=== PATIENT | male | born 1975 | race American Indian/Alaskan Native ===

== ENCOUNTER 2016-11-16 10:58 | Inpatient (IN) | payer OTHER ==
[2016-11-16] MEDS ORDERED: Sodium Chloride 0.9% 500 ML IV ONE (13:07)
[2016-11-16] MEDS ORDERED: Sodium Chloride 0.9% 1,000 ML ONE (13:31)
[2016-11-16 13:40] LABS: BASO # 0.1 K/uL (0.0-0.2); BASO % 0.4 % (0.0-2.0); EOS # 0.2 K/uL (0.0-0.7); MEAN CORPUSCULAR HEMOGLOBIN 28.5 pg (27.0-31.0); MEAN CORPUSCULAR HGB CONC 31.7 g/dL (33.0-37.0); MEAN PLATELET VOLUME 7.6 fL (7.2-11.7); MONO # 0.8 K/uL (0.0-0.8); MONO % 5.1 % (0.0-10.0); RED CELL DISTRIBUTION WIDTH 13.6 % (11.5-14.5); WHITE BLOOD COUNT 16.5 K/uL (4.8-10.8)
--- NOTE | 2016-11-16 13:45 | C.PDOC ---
History Of Present Illness 41 yr old male presents to the ER for evaluation of left testicular painful mass , gradually worsening for the past few months. Patient states the swelling has worsened in the past few days, associated with moderate discharge and chills. Patient denies fever, chills, chest pain, SOB, nausea, vomiting, abdominal pain , diarrhea, dysuria, hematuria, penile discharge, weakness or numbness. Time Seen by Provider: 11/16/16 12:00 Chief Complaint (Nursing): Groin Pain History Per: Patient History/Exam Limitations: no limitations Onset/Duration Of Symptoms: Persistent (Few months. ), Worse Since (Past few days.) Current Symptoms Are (Timing): Still Present Past Medical History Reviewed: Historical Data, Nursing Documentation, Vital Signs Vital Signs: Last Vital Signs Temp 98.4 F 11/18/16 08:29 Pulse 93 H 11/18/16 08:29 Resp 20 11/18/16 08:29 BP 123/82 11/18/16 08:29 Pulse Ox 97 11/18/16 08:29 Family History: States: No Known Family Hx - Social History Hx Alcohol Use: No Hx Substance Use: No - Immunization History Hx Tetanus Toxoid Vaccination: No Hx Influenza Vaccination: No Hx Pneumococcal Vaccination: No Review Of Systems Except As Marked, All Systems Reviewed And Found Negative. Constitutional: Negative for: Fever, Chills Cardiovascular: Negative for: Chest Pain Respiratory: Negative for: Shortness of Breath Gastrointestinal: Negative for: Nausea, Vomiting, Abdominal Pain, Diarrhea Genitourinary: Positive for: Other ((+) Left testicular painful mass). Negative for: Dysuria, Hematuria, Penile Discharge Neurological: Negative for: Weakness, Numbness Physical Exam - Physical Exam Appears: Well, Non-toxic, No Acute Distress Skin: Warm, Dry, No Rash Head: Atraumatic, Normacephalic Eye(s): bilateral: Normal Inspection, PERRL, EOMI Oral Mucosa: Moist Throat: Normal, No Erythema, No Exudate Neck: Normal, Normal ROM, Supple Chest: Symmetrical, No Tenderness Cardiovascular: Rhythm Regular, No Murmur Respiratory: Normal Breath Sounds, No Rales, No Rhonchi, No Stridor, No Wheezing Gastrointestinal/Abdominal: Normal Exam, Soft, No Tenderness, No Guarding, No Rebound Male Genital: Other ((+) Tender mass to the left testicular with open wound, copious amount of discharge. ) Extremity: Normal ROM Neurological/Psych: Oriented x3, Normal Speech, Normal Motor ED Course And Treatment - Laboratory Results Result Diagrams: 11/18/16 06:29 11/18/16 06:29 Lab Interpretation: Abnormal O2 Sat by Pulse Oximetry: 99 Pulse Ox Interpretation: Normal - CT Scan/US US - Testicular Other Rad Studies (CT/US): Read By Radiologist, Radiology Report Reviewed CT/US Interpretation: HISTORY: Left testicular abscess. TECHNIQUE: Realtime sonography through the scrotum with color and doppler flow. COMPARISON: None Available. FINDINGS: RIGHT TESTICLE: Measures 4.7 x 2.2 x 2.8 cm. Homogeneous echotexture.Blood flow is demonstrated. 0.2 x 0.2 x 0.2 cm probable right scrotal cyst. RIGHT EPIDIDYMIS: Measures approximately 0.8 x 0.9 x 1.2 cm. LEFT TESTICLE: Measures 4.5 x 2.1 x 2.4 cm. Homogeneous echotexture. Blood flow is demonstrated. LEFT EPIDIDYMIS: Measures approximately 1.0 x 0.7 x 0.9 cm. HYDROCELE: Trace left hydrocele. VARICOCELE : None. OTHER FINDINGS: Ill-defined extra testicular heterogeneous and hyperechoic vascular solid appearing left scrotal mass. Scrotal wall thickening. IMPRESSION: Ill-defined extra testicular heterogeneous, hyperechoic, and hypervascular left scrotal mass appears solid. Scrotal wall thickening. Finding corresponds with palpable abnormality. Malignant neoplasm must be excluded. Abscess is considered less likely. Recommend urologic consultation. Findings discussed with Elisa Isidro on 11/16/16 at 2:43 p.m. Progress Note: At 15:10, imaging results review and discussed with radiologist. [id number] paged for consult. At 16:30, was paged again. Case discussed with ED attending, results, imaging review and admission recommend. Case discussed with Hospitalist and admission arranged. Abx, additional blood work order per Hospitalist request. Medical Decision Making Medical Decision Making: PLAN: * US - Testicular * GC Chlamydia * Urinalysis * Sodium Chloride IV Disposition - Disposition Disposition: HOSPITALIZED Disposition Time: 16:02 Condition: STABLE - Clinical Impression Clinical Impression: Testicular abscess, Testicular mass, Cellulitis - PA / GEOCHEMICAL LABORATORY TECHNICIAN / Resident Statement MD/DO has reviewed & agrees with the documentation as recorded. - Scribe Statement The provider has reviewed the documentation as recorded by the Scribe Dari Mckeon All medical record entries made by the Scribe were at my direction and personally dictated by me. I have reviewed the chart and agree that the record accurately reflects my personal performance of the history, physical exam, medical decision making, and the department course for this patient. I have also personally directed, reviewed, and agree with the discharge instructions and disposition.
[2016-11-16 13:47] LABS: CHLORIDE 100 mmol/L (98-107)
[2016-11-16 13:48] LABS: POTASSIUM 4.5 mmol/L (3.6-5.2); SODIUM 139 mmol/L (132-148)
[2016-11-16 13:50] LABS: ALB/GLOB RATIO 0.8 (1.0-2.1); ALKALINE PHOSPHATASE 81 U/L (38-126); AST/SGOT 24 U/L (17-59); BILIRUBIN,TOTAL 0.6 mg/dL (0.2-1.3); BLOOD UREA NITROGEN 9 mg/dL (9-20); CARBON DIOXIDE 28 mmol/L (22-30); GFR AFRICAN-AMERICAN > 60; GLUCOSE,RANDOM 96 mg/dL (75-110); TOTAL PROTEIN 8.6 g/dL (6.3-8.3)
[2016-11-16 13:51] LABS: ALT/SGPT 33 U/L (21-72); CALCIUM 8.8 mg/dl (8.6-10.4)
[2016-11-16 14:01] LABS: RBC URINE 3 /hpf (0-3); URINE BILIRUBIN NEGATIVE (NEGATIVE); URINE BLOOD NEGATIVE (NEGATIVE); URINE COLOR Yellow (YELLOW); URINE GLUCOSE (UA) NORMAL (Normal); URINE KETONE TRACE mg/dL (NEGATIVE); URINE LEUKOCYTE ESTERASE NEG Leu/uL (Negative); URINE PROTEIN NEGATIVE (NEGATIVE); URINE UROBILINOGEN NORMAL mg/dL (0.2-1.0); WBC URINE 1 /hpf (0-5)
--- NOTE | 2016-11-16 14:59 | US ---
HISTORY: Left testicular abscess TECHNIQUE: Realtime sonography through the scrotum with color and doppler flow. COMPARISON: None Available. FINDINGS: RIGHT TESTICLE: Measures 4.7 x 2.2 x 2.8 cm. Homogeneous echotexture.Blood flow is demonstrated. 0.2 x 0.2 x 0.2 cm probable right scrotal cyst. RIGHT EPIDIDYMIS: Measures approximately 0.8 x 0.9 x 1.2 cm. LEFT TESTICLE: Measures 4.5 x 2.1 x 2.4 cm. Homogeneous echotexture. Blood flow is demonstrated. LEFT EPIDIDYMIS: Measures approximately 1.0 x 0.7 x 0.9 cm. HYDROCELE: Trace left hydrocele. VARICOCELE: None. OTHER FINDINGS: Ill-defined extra testicular heterogeneous and hyperechoic vascular solid appearing left scrotal mass. Scrotal wall thickening. IMPRESSION: Ill-defined extra testicular heterogeneous, hyperechoic, and hypervascular left scrotal mass appears solid. Scrotal wall thickening. Finding corresponds with palpable abnormality. Malignant neoplasm must be excluded. Abscess is considered less likely. Recommend urologic consultation. Findings discussed with Elisa Isidro on 11/16/16 at 2:43 p.m.
[2016-11-16] MEDS ORDERED: Vancomycin 1 gm/NS 200 ml 200 ML IVPB STA (15:14)
[2016-11-16] MEDS ORDERED: Piperacillin/Tazobact 3.375 gm 100 ML IV STA (16:07)
[2016-11-16] MEDS ORDERED: Sodium Chloride 0.9% 1,000 ML IV SCH (17:00)
[2016-11-16] MEDS ORDERED: Piperacillin/Tazobact 3.375 GM in Sodium Chloride 100 ML IVPB SCH (17:00)
--- NOTE | 2016-11-16 17:01 | CP.PCM.HP ---
<Sam Mari - Last Filed: 11/16/16 16:54> History of Present Illness - History of Present Illness History of Present Illness: This is a 41 yo M with no significant PMH that presented to the ED with a chief complaint of left testicular pain. Pt states that his symptoms began 6 months ago and started out what looked like a "pimple" on his left testicle. He states that he is able to express discharge from it at times. He states that it progressed and became more painful. He states that he has a feeling of fullness and it has gotten worse over time as well. The pain is currently a 6/10 and is constant. There is no relieving factors. Pt states that he had a 103.1 fever 3 days ago that resolved with over the counter medications. Pt states that he is sexually active with only his . Denies any more fevers, denies chills, chest pain, sob, nausea, vomiting, penile discharge, dysuria, urinary urgency or frequency. PMD: none PMH: denies PSH: denies Home meds: none Allergies: NKDA FH: denies SH: denies tobacco, etoh or drug use Present on Admission - Present on Admission Any Indicators Present on Admission: No Review of Systems - Constitutional Constitutional: absent: Chills, Fever - EENT Eyes: absent: Blurred Vision, Pain - Cardiovascular Cardiovascular: absent: Chest Pain, Palpitations - Respiratory Respiratory: absent: Cough, Dyspnea - Gastrointestinal Gastrointestinal: absent: Nausea, Vomiting - Genitourinary Genitourinary: absent: Dysuria, Hematuria, Urinary Frequency, Urinary Hesitance , Urinary Urgency - Musculoskeletal Musculoskeletal: absent: Muscle Weakness, Stiffness - Integumentary Integumentary: absent: Pruritus, Rash - Neurological Neurological: absent: Numbness, Tingling Past Patient History - Past Social History Smoking Status: Never Smoked - PSYCHIATRIC Hx Substance Use: No - SURGICAL HISTORY Hx Surgeries: Yes Hx Orthopedic Surgery: Yes - ANESTHESIA Hx Anesthesia: Yes Hx Anesthesia Reactions: No Meds Allergies/Adverse Reactions: Allergies Allergy/AdvReac Type Severity Reaction Status Date / Time CHERRIES Allergy Severe ANAPHYLAXIS Uncoded 11/16/16 11:48 Physical Exam - Constitutional Appears: Well, Non-toxic, No Acute Distress - Head Exam Head Exam: ATRAUMATIC, NORMOCEPHALIC - Eye Exam Eye Exam: Normal appearance Pupil Exam: PERRL - ENT Exam ENT Exam: Mucous Membranes Moist - Respiratory Exam Respiratory Exam: Clear to Auscultation Bilateral, NORMAL BREATHING PATTERN - Cardiovascular Exam Cardiovascular Exam: +S1, +S2 - GI/Abdominal Exam GI & Abdominal Exam: Normal Bowel Sounds, Soft - Exam Additional comments: Left testicle: Palpable mass/induration covering left testicle with open sores and serosanginous discharge. Pain to palpation. Right testicle: no pain to palpation, no varicocele. - Extremities Exam Extremities exam: Positive for: normal capillary refill, normal inspection - Neurological Exam Neurological exam: Alert, Oriented x3 - Skin Skin Exam: Dry, Warm Results - Vital Signs Recent Vital Signs: Last Vital Signs Temp 98.5 F 11/16/16 11:49 Pulse 90 11/16/16 11:49 Resp 20 11/16/16 11:49 BP 127/87 11/16/16 11:49 Pulse Ox 99 11/16/16 16:15 - Labs Result Diagrams: 11/16/16 13:30 11/16/16 13:30 Assessment & Plan - Assessment and Plan (Free Text) Assessment: Left testicular mass vs abscess - Pain to palpation with discharge from small, open sore - Testicular US 11/16 - Ill-defined extra testicular heterogeneous, hyperechoic, and hypervascular left scrotal mass appears solid. Scrotal wall thickening. Finding corresponds with palpable abnormality. Malignant neoplasm must be excluded. Abscess is considered less likely. Recommend urologic consultation. - Blood and urine culture - f/u - Wound culture - f/u - HIV, RPR and G/C - f/u - Zosyn and Vancomycin started (11/16) - Afebrile, but with leukocytosis - Tylenol PRN - Urology consult - Guillermo - help appreciated - F/U recs Leukocytosis - Likely due to above PPX - Lovenox - Pepcid <Osman Atkinson - Last Filed: 12/19/16 18:08> Results - Vital Signs Recent Vital Signs: Last Vital Signs Temp 98.4 F 11/24/16 08:15 Pulse 86 11/24/16 08:52 Resp 20 11/24/16 08:15 BP 119/80 11/24/16 08:15 Pulse Ox 99 11/24/16 08:15 - Labs Result Diagrams: 11/24/16 07:33 11/24/16 07:33 Attending/Attestation - Attestation I have personally seen and examined this patient.: Yes I have fully participated in the care of the patient.: Yes I have reviewed all pertinent clinical information: Yes Notes (Text): Patient seen and examined with the resident. Agree with the resident's evaluation, assessment and plan. Left testicular mass vs abscess Leukocytosis
[2016-11-16] MEDS ORDERED: Piperacillin/Tazobact 3.375 gm 100 ML IVPB ONE (17:24)
[2016-11-16] MEDS ORDERED: Vancomycin 1 gm/NS 200 ml 200 ML IVPB SCH (17:30)
[2016-11-16] MEDS: Sodium Chloride 0.9% 1,000 ML IV SCH (20:20)
[2016-11-17] MEDS: Piperacillin/Tazobact 3.375 GM in Sodium Chloride 100 ML IVPB SCH ×4 (00:27→17:33)
[2016-11-17] MEDS: Vancomycin 1 gm/NS 200 ml 200 ML IVPB SCH ×2 (03:53→15:57)
[2016-11-17] MEDS: Sodium Chloride 0.9% 1,000 ML IV SCH (03:55)
[2016-11-17 07:46] LABS: BASO # 0.1 K/uL (0.0-0.2); BASO % 0.7 % (0.0-2.0); EOS # 0.3 K/uL (0.0-0.7); EOS % 1.7 % (0.0-4.0); HEMATOCRIT 36.6 % (35.0-51.0); LYMPH # 1.9 K/uL (1.0-4.3); LYMPH % 12.5 % (20.0-40.0); MEAN CELL VOLUME 89.7 fL (80.0-94.0); MEAN CORPUSCULAR HGB CONC 32.3 g/dL (33.0-37.0); MEAN PLATELET VOLUME 7.6 fL (7.2-11.7); MONO # 0.9 K/uL (0.0-0.8); MONO % 6.1 % (0.0-10.0); RED CELL DISTRIBUTION WIDTH 13.7 % (11.5-14.5); WHITE BLOOD COUNT 15.3 K/uL (4.8-10.8)
[2016-11-17 07:57] LABS: CHLORIDE 101 mmol/L (98-107); SODIUM 141 mmol/L (132-148)
[2016-11-17 07:58] LABS: POTASSIUM 4.5 mmol/L (3.6-5.2)
[2016-11-17 08:00] LABS: ALB/GLOB RATIO 0.9 (1.0-2.1); ALKALINE PHOSPHATASE 78 U/L (38-126); ALT/SGPT 26 U/L (21-72); AST/SGOT 23 U/L (17-59); BILIRUBIN,TOTAL 0.6 mg/dL (0.2-1.3); BLOOD UREA NITROGEN 10 mg/dL (9-20); CARBON DIOXIDE 25 mmol/L (22-30); GFR AFRICAN-AMERICAN > 60; GLUCOSE,RANDOM 105 mg/dL (75-110); TOTAL PROTEIN 7.3 g/dL (6.3-8.3)
[2016-11-17 08:01] LABS: CALCIUM 8.2 mg/dl (8.6-10.4)
[2016-11-17] MEDS: Enoxaparin 40 mg Syringe SC SCH (09:24)
[2016-11-17] MEDS ORDERED: Iodixanol 320 MG/ML 100 ML BOTTLE IV ONE (13:10)
--- NOTE | 2016-11-17 13:49 | CT ---
PROCEDURE: CT Abdomen and Pelvis with contrast HISTORY: testicular mass r/o evidence of mets COMPARISON: None available. TECHNIQUE: Contrast dose: 100 cc visi opaque 320 Radiation dose: Total exam DLP = 332.35 mGy-cm. This CT exam was performed using one or more of the following dose reduction techniques: Automated exposure control, adjustment of the mA and/or kV according to patient size, and/or use of iterative reconstruction technique. FINDINGS: Examination limited by paucity of intra-abdominal and intrapelvic fat. LOWER THORAX: No visible consolidation, pleural effusion, or pneumothorax. LIVER: Hypoattenuation of the liver compatible with hepatic steatosis. GALLBLADDER AND BILE DUCTS: Unremarkable. PANCREAS: Unremarkable. SPLEEN: Unremarkable. ADRENALS: Unremarkable. KIDNEYS AND URETERS: The kidneys enhance symmetrically. No evidence of hydronephrosis or obstructing calculus. 13 mm hypodense lesion within the left lower pole kidney measuring approximately 13 HU, possibly cyst. VASCULATURE: No aortic aneurysm. BOWEL: The stomach is incompletely distended and contains debris. Lack of oral contrast limits evaluation for bowel pathology. Bowel loops appear within normal limits of caliber without evidence of obstruction. Moderate constipation. APPENDIX: The presumed appendix appears within normal limits of caliber. No secondary signs of acute appendicitis. PERITONEUM: No significant free fluid. No definite free air. LYMPH NODES: Bilateral prominent inguinal adenopathy measuring up to 11 mm in short axis on the left. Lymph node along the left iliac artery measures approximately 7 mm in short axis (series 3, image 123). BLADDER: Mildly thick-walled urinary bladder likely exaggerated by under distension. REPRODUCTIVE: The prostate gland measures approximately 2.9 x 3.7 cm. BONES: Left L5 spondylolysis. OTHER FINDINGS: 1.7 cm fat containing umbilical hernia. IMPRESSION: 13 mm hypodense lesion within the left lower pole kidney, possibly cyst. Further evaluation with renal ultrasound suggested for confirmation if indicated. Hepatic steatosis. Mildly thick-walled urinary bladder likely exaggerated by under distension. Left L5 spondylolysis. 1.7 cm fat containing umbilical hernia. Nonspecific lymphadenopathy: Bilateral prominent inguinal adenopathy measuring up to 11 mm in short axis on the left. Lymph node along the left iliac artery measures approximately 7 mm in short axis.
--- NOTE | 2016-11-17 15:03 | CON ---
DATE: 11/17/2016 REASON FOR CONSULTATION: Left scrotal cellulitis and mass on ultrasound. BRIEF HISTORY: The patient is a 41-year-old sexually active male with a history of left scrotal nodu les which began 6 months ago, which became progressively larger and eventually leading into inflammat ion of the left scrotal wall and drainage which began 2 months ago. The patient was seen at [facility] on 11/16/2016 where the patient had a scrotal ultrasound done and this was revie wed with radiology, Dr. Luz Stevens, today, 11/17/2016, which showed the testicle relatively intact and inflammation throughout the left scrotal wall without any apparent abscess formation, possibly se condary to the spontaneous drainage that the patient has had for over the last 2 months from the uppe r left scrotal wound, which was open. This area was cultured in the ER. The ultrasound report was r ead as a neoplasm, should be ruled out. The patient's white count on admission was over 17,000. His white count late yesterday was 16.5 and is currently 15.3 today, 11/17/2016, on Zosyn and vancomycin I V antibiotics. The patient himself denies any other prior medical history. PAST SURGICAL HISTORY: His only past surgery history was for that of a fractured right humerus. SOCIAL HISTORY: He smoked for 16 years, about a pack every 3 days, and he stopped smoking last week. He is only a social drinker. ALLERGIES: He has no known allergies to medications. PHYSICAL EXAMINATION: GENERAL: Today, he is a well-developed, well-nourished male. He is alert, oriented. HEENT: Grossly within normal limits. ABDOMEN: Soft, not distended or tender. No CVA tenderness. No suprapubic tenderness. GENITALIA: His scrotal area, he is not circumcised. Normal glans and meatus. His right scrotum antoine ears to be relatively uninvolved at this time. His left scrotum is thickened and edematous with an o pen wound in the superior portion of the anterior aspect of the left scrotal wall. He also now has s ome inflammatory changes extending to the left medial thigh and perineum, which was tender. RECTAL: The patient had normal rectal tone without fluctuance or masses and the prostate was average size, smooth, symmetrical, nontender, without any nodules or indurations with a palpable median sulc us. LABORATORY EVALUATION: Today on 11/17/2016 showed a CBC with a WBC count of 15.3, hemoglobin of 11.8, hematocrit 36.6 with a platelet count of 304,000. His chem profile showed a sodium of 141, potassium 4.5, chloride 101, carbon dioxide 25, BUN and creatinine were 10 and 0.9 respectively with a GFR of greater than 60. Calcium was 8.2. AST was 23, ALT was 26 and alkaline phosphatase was 78. Urinalys is on 11/16/2016 showed trace ketones, 1 WBC and 3 RBCs per high power field. His RPR was nonreactive and his hepatitis profile appeared to be negative. His HIV 1 and 2 antibody screen was also negative . DIAGNOSTIC IMPRESSION: Left scrotal wall cellulitis with new extension to the left medial thigh and perineum with a scrotal mass, possibly inflammatory, rule out malignancy. PLAN: For this patient, we will order an abdominal pelvic CT, tumor protocol, extending down to the scrotum and will also order testicular tumor markers which will include alpha fetoprotein, beta hCG, and LDH. Markus Li MD cc: [phone] TT: 11/17/2016 15:03:00 Confirmation # [id number] Dictation # [id number] mary alice
--- NOTE | 2016-11-17 18:53 | CP.PCM.PN ---
<Amy Mitchell - Last Filed: 11/17/16 18:50> Subjective - Date & Time of Evaluation Date of Evaluation: 11/17/16 Time of Evaluation: 08:00 - Subjective Subjective: PGY [address] Atkinson: Patient was seen and examined at bedside today. He states that his pain has remained unchanged form admission and is about a 6/10. He reports some discharge from his scrotum. Patient denies fever/chills. He reports that he is able to tolerate his diet. He has no other complaints such as headache, changes in vision, CP, SOB, dizziness, abd pain, N/V, diarrhea/constipation, urinary complains. Objective - Vital Signs/Intake and Output Vital Signs (last 24 hours): Temp Pulse Resp BP Pulse Ox 98.9 F 91 H 20 136/90 100 11/17/16 16:00 11/17/16 16:00 11/17/16 16:00 11/17/16 16:00 11/17/16 16:00 Intake and Output: 11/17/16 11/17/16 06:59 18:59 Intake Total 1040 Balance 1040 - Medications Medications: Current Medications Acetaminophen (Tylenol 325mg Tab) 650 mg PO Q6 PRN PRN Reason: Pain, Mild (1-3) Last Admin: 11/17/16 05:29 Dose: 650 mg Enoxaparin Sodium (Lovenox) 40 mg SC DAILY [facility] Last Admin: 11/17/16 09:24 Dose: 40 mg Famotidine (Pepcid) 20 mg PO BID [facility] Last Admin: 11/17/16 17:33 Dose: 20 mg Piperacillin Sod/Tazobactam (Sod 3.375 gm/ Sodium Chloride) 100 mls @ 200 mls/ hr IVPB Q6H [facility] Last Admin: 11/17/16 17:33 Dose: 200 mls/hr Vancomycin/Sodium Chloride (Vancocin) 200 mls @ 133 mls/hr IVPB Q12H [facility] Stop: 11/22/16 03:31 Last Admin: 11/17/16 15:57 Dose: 133 mls/hr Influenza Virus Vaccine (Afluria) 45 mcg IM .ONCE ONE Stop: 11/18/16 10:01 Pneumococcal Polyvalent Vaccine (Pneumovax 23 Vaccine) 0.5 ml IM .ONCE ONE Stop: 11/18/16 10:01 Tramadol HCl (Ultram) 50 mg PO TID PRN PRN Reason: Pain, moderate (4-7) - Labs Labs: 11/17/16 07:28 11/17/16 07:28 - Constitutional Appears: Non-toxic, No Acute Distress - Head Exam Head Exam: ATRAUMATIC, NORMAL INSPECTION - Eye Exam Eye Exam: EOMI, Normal appearance Pupil Exam: NORMAL ACCOMODATION - ENT Exam ENT Exam: Mucous Membranes Moist - Respiratory Exam Respiratory Exam: Clear to Ausculation Bilateral, NORMAL BREATHING PATTERN. absent: Accessory Muscle Use, Chest Wall Tenderness, Respiratory Distress - Cardiovascular Exam Cardiovascular Exam: REGULAR RHYTHM, +S1, +S2 - GI/Abdominal Exam GI & Abdominal Exam: Soft, Normal Bowel Sounds. absent: Distended, Firm, Guarding, Tenderness - Exam Exam: Scrotal Swelling, Testicular Tenderness Additional comments: left scrotal are thickened and edematous with an open wound in the superior portion of the anterior aspect of the left scrotal wall. imflammatory changes extending to the left medial thigh and perineum - Extremities Exam Extremities Exam: Normal Inspection. absent: Calf Tenderness, Pedal Edema - Back Exam Back Exam: NORMAL INSPECTION. absent: CVA tenderness (L), CVA tenderness (R), paraspinal tenderness - Neurological Exam Neurological Exam: Alert, Awake, CN II-XII Intact, Oriented x3 Neuro motor strength exam: Left Upper Extremity: 5, Right Upper Extremity: 5, Left Lower Extremity: 5, Right Lower Extremity: 5 - Psychiatric Exam Psychiatric exam: Normal Affect, Normal Mood - Skin Skin Exam: Dry, Intact, Normal Color, Warm Assessment and Plan - Assessment and Plan (Free Text) Assessment: Left scrotal wall cellulitis - with extension to the left medial thigh and perineum with scrotal mass - possibly inflammatory but need to rule out malignancy - Pain to palpation with discharge from small, open sore - Abd/Pelvis CT 11/17 - nonspecific lymphadenopathy: bilateral prominent inguinal adenopathy measuring up to 11 mm. :ymph node justin ethe left iliac artery measures 7mm in short axis. (1.7 cm fat containing umbilical hernia. Left L5 spondlolysis. mildly thick walled urinary bladder, hepatic steatosis, 13 mm hypodense lesion within the left lower pole kidney, possibly cyst, further eval with renal ultrasound suggested) - Testicular US 11/16 - Ill-defined extra testicular heterogeneous, hyperechoic, and hypervascular left scrotal mass appears solid. Scrotal wall thickening. Finding corresponds with palpable abnormality. Malignant neoplasm must be excluded. Abscess is considered less likely. Recommend urologic consultation. - Blood culture 11/16 - negative for 24 hours - urine culture / - negative - UA / - within normal limits - Wound culture / - prelim no growth for 24 hours - Zosyn and Vancomycin started (11/16) - Afebrile, but with leukocytosis - Tylenol PRN - Urology consult - Dr. Li - help appreciated - ID consulted - Dr. Burrell - help appreciated - f/u testicular tumor markers: - AFP - 3.0 wnl - BHcG - <2.39 wnl - LDH - 301 - RPR, hepatitis, hiv - negative Leukocytosis - WBC 15.3, 16.5 yesterday, no bandemia - Afebrile, denies f/c - Zosyn 3.375 mg IVPB Q 8 hours (started 11/16) - Vanc 1gm IVPB Q12 hours (started 11/16) - f/u am labs PPX - Lovenox 40mc SC daily - Pepcid 20 mg PO BID - Regular diet <Osman Atkinson - Last Filed: 12/22/16 13:36> Objective - Vital Signs/Intake and Output Vital Signs (last 24 hours): Temp Pulse Resp BP Pulse Ox 98.4 F 86 20 119/80 99 11/24/16 08:15 11/24/16 08:52 11/24/16 08:15 11/24/16 08:15 11/24/16 08:15 - Labs Labs: 11/24/16 07:33 11/24/16 07:33 PT 13.8 SECONDS (9.7-12.2) H 11/19/16 11:56 INR 1.2 11/19/16 11:56 APTT 36 SECONDS (21-34) H 11/19/16 11:56 Attending/Attestation - Attestation I have personally seen and examined this patient.: Yes I have fully participated in the care of the patient.: Yes I have reviewed all pertinent clinical information, including history, physical exam and plan: Yes Notes (Text): Patient seen and examined with the resident. Agree with the resident's evaluation, assessment and plan. Left scrotal wall cellulitis Leukocytosis
--- NOTE | 2016-11-17 22:30 | CP.PCM.CON ---
History of Present Illness - History of Present Illness History of Present Illness: dictated Past Patient History - Past Social History Smoking Status: Former Smoker - MUSCULOSKELETAL/RHEUMATOLOGICAL Hx Falls: No - PSYCHIATRIC Hx Substance Use: No - SURGICAL HISTORY Hx Surgeries: Yes - ANESTHESIA Hx Anesthesia: No Hx Anesthesia Reactions: No Hx Malignant Hyperthermia: No Has any member of the family had a problem w/ anesthesia?: No Meds Allergies/Adverse Reactions: Allergies Allergy/AdvReac Type Severity Reaction Status Date / Time CHERRIES Allergy Severe ANAPHYLAXIS Uncoded 11/16/16 11:48 - Medications Medications: Current Medications Acetaminophen (Tylenol 325mg Tab) 650 mg PO Q6 PRN PRN Reason: Pain, Mild (1-3) Last Admin: 11/17/16 05:29 Dose: 650 mg Enoxaparin Sodium (Lovenox) 40 mg SC DAILY [facility] Last Admin: 11/17/16 09:24 Dose: 40 mg Famotidine (Pepcid) 20 mg PO BID [facility] Last Admin: 11/17/16 17:33 Dose: 20 mg Piperacillin Sod/Tazobactam (Sod 3.375 gm/ Sodium Chloride) 100 mls @ 200 mls/ hr IVPB Q6H [facility] Last Admin: 11/17/16 17:33 Dose: 200 mls/hr Vancomycin/Sodium Chloride (Vancocin) 200 mls @ 133 mls/hr IVPB Q12H [facility] Stop: 11/22/16 03:31 Last Admin: 11/17/16 15:57 Dose: 133 mls/hr Influenza Virus Vaccine (Afluria) 45 mcg IM .ONCE ONE Stop: 11/18/16 10:01 Pneumococcal Polyvalent Vaccine (Pneumovax 23 Vaccine) 0.5 ml IM .ONCE ONE Stop: 11/18/16 10:01 Tramadol HCl (Ultram) 50 mg PO TID PRN PRN Reason: Pain, moderate (4-7) Last Admin: 11/17/16 21:43 Dose: 50 mg Results - Vital Signs Recent Vital Signs: Last Vital Signs Temp 98.9 F 11/17/16 16:00 Pulse 91 H 11/17/16 16:00 Resp 20 11/17/16 16:00 BP 136/90 11/17/16 16:00 Pulse Ox 100 11/17/16 16:00 - Labs Result Diagrams: 11/17/16 07:28 11/17/16 07:28 Labs: Laboratory Results - last 24 hr 11/17/16 11/17/16 07:28 14:01 WBC 15.3 H RBC 4.08 L Hgb 11.8 L Hct 36.6 MCV 89.7 MCH 29.0 MCHC 32.3 L RDW 13.7 Plt Count 304 MPV 7.6 Neut % (Auto) 79.0 H Lymph % (Auto) 12.5 L Sharkey % (Auto) 6.1 Eos % (Auto) 1.7 Baso % (Auto) 0.7 Neut # 12.1 H Lymph # 1.9 Sharkey # 0.9 H Eos # 0.3 Baso # 0.1 Sodium 141 Potassium 4.5 Chloride 101 Carbon Dioxide 25 Anion Gap 20 BUN 10 Creatinine 0.9 Est GFR ( Amer) > 60 Est GFR (Non-Af Amer) > 60 Random Glucose 105 Calcium 8.2 L Total Bilirubin 0.6 AST 23 ALT 26 Alkaline Phosphatase 78 Lactate Dehydrogenase 301 L Total Protein 7.3 Albumin 3.5 Globulin 3.8 Albumin/Globulin Ratio 0.9 L Alpha Fetoprotein 3.0 Beta HCG, Quant < 2.39
[2016-11-18] MEDS: Piperacillin/Tazobact 3.375 GM in Sodium Chloride 100 ML IVPB SCH ×4 (00:19→17:00)
[2016-11-18] MEDS: Vancomycin 1 gm/NS 200 ml 200 ML IVPB SCH ×2 (03:40→18:09)
--- NOTE | 2016-11-18 05:41 | CON ---
DATE: 11/17/2016 REQUESTING PHYSICIAN: Dr. Osman Atkinson. HISTORY OF PRESENT ILLNESS: This patient is a 41-year-old with no significant past medical history. He came in with left testicular pain. He says he has been having these symptoms for 6 months. He developed a small pimple on the left testicle and it breaks and has multiple other areas which are breaking up and opening up. He says the pain was constant. He also had a temperature of 103, he said. He says he is only sexually active with his . Denies any fever. Denies any other problems. No nausea, no vomiting. No chest pain, no shortness of breath, no dysuria, urgency, frequency, just has these lesions which come up on the scrotal area and open up. PAST MEDICAL HISTORY: Negative. PAST SURGICAL HISTORY: Negative. HOME MEDICATIONS: None. He is not allergic to any medicine, he was just applying local cream. SOCIAL HISTORY: Negative. He gives no other history. ALLERGIES: HE IS ALLERGIC TO CHERRIES. MEDICATIONS: He was started on vancomycin and Zosyn. He is also on Lovenox, Pepcid. He received a vaccine. He is on tramadol. He had a CAT scan done, reports of which were not available when I saw him. PHYSICAL EXAMINATION: VITAL SIGNS: His temperature is 98.9, pulse 73, blood pressure 139/90, respirations are 20. GENERAL: He appears to be in no acute respiratory distress. HEENT: Head is atraumatic, normocephalic. Pupils are reacting to light. Throat, no congestion, no thrush seen. NECK: Supple. JPs flat. LUNGS: Clear. No crackles or rales present. HEART: S1, S2 regular. ABDOMEN: Soft, nontender, no guarding, no rigidity present. SCROTAL AREA: There was some area which was bleeding and some induration in the left testicle and it was painful for palpation. He said there was another area posteriorly which I could not visualize, would leave it to the urologist. EXTREMITIES: Have no edema otherwise. LABORATORY DATA: Show white count is 15.3 today, he came in with a 16.5, hemoglobin 11.8, hematocrit 36.6, platelet count is 304. BUN is 10, creatinine 0.90. UA was negative. He had an RPR done, which was negative. Hepatitis profile was negative. chlamydia and gonorrhea was negative. RPR was negative, so it is unclear unless he has a staph infection. He had abdomen and pelvis CT done, which showed and matured 13 mm hypodense lesion within the left lower pole of the kidney, possible cyst. Renal ultrasound suggested hepatic steatosis, mildly thick walled urinary bladder, likely exaggerated by under distention, left L5 spondylosis, 1.7 fat containing umbilical hernia, nonspecific lymphadenopathy, bilateral prominent and groin adenopathy measuring up to 11 mm on left axis. Lymph node along the left iliac artery measuring approximately 7 mm short axis. He does have a lot of lymphadenopathy. ASSESSMENT AND PLAN: I would also get HSV herpes 1. I will look for herpes IgG and IgM. I will ask the resident to place the order and will continue with the vancomycin and Zosyn at this time, will follow. Unless he has a staph infection of folliculitis will keep Vancomycin . We will follow the culture report if it was obtained. To follow vancomycin begin trial as he is on 1 gram q. 12 also on Zosyn. Jazmyn Burrell MD cc: [id number] TT: 11/18/2016 05:40:51 Confirmation # [id number] Dictation # [id number] MTDD
[2016-11-18 06:40] LABS: BASO # 0.1 K/uL (0.0-0.2); BASO % 0.4 % (0.0-2.0); EOS # 0.4 K/uL (0.0-0.7); HEMATOCRIT 35.9 % (35.0-51.0); LYMPH # 2.5 K/uL (1.0-4.3); MEAN CELL VOLUME 89.5 fL (80.0-94.0); MEAN CORPUSCULAR HEMOGLOBIN 28.8 pg (27.0-31.0); MEAN CORPUSCULAR HGB CONC 32.2 g/dL (33.0-37.0); MEAN PLATELET VOLUME 7.8 fL (7.2-11.7); MONO # 1.1 K/uL (0.0-0.8); MONO % 6.4 % (0.0-10.0); RED CELL DISTRIBUTION WIDTH 13.6 % (11.5-14.5); WHITE BLOOD COUNT 17.5 K/uL (4.8-10.8)
[2016-11-18 06:52] LABS: CHLORIDE 99 mmol/L (98-107); POTASSIUM 4.2 mmol/L (3.6-5.2); SODIUM 141 mmol/L (132-148)
[2016-11-18 06:54] LABS: ALB/GLOB RATIO 0.9 (1.0-2.1); ALKALINE PHOSPHATASE 70 U/L (38-126); AST/SGOT 18 U/L (17-59); BLOOD UREA NITROGEN 6 mg/dL (9-20); CARBON DIOXIDE 25 mmol/L (22-30); GFR AFRICAN-AMERICAN > 60; GLUCOSE,RANDOM 81 mg/dL (75-110); TOTAL PROTEIN 7.3 g/dL (6.3-8.3)
[2016-11-18 06:55] LABS: ALT/SGPT 27 U/L (21-72); CALCIUM 8.1 mg/dl (8.6-10.4); MAGNESIUM 1.9 mg/dL (1.6-2.3); PHOSPHOROUS 3.8 mg/dL (2.5-4.5)
[2016-11-18] MEDS ORDERED: Influenza Virus Vaccine 45 mcg/0.5 ml Syr IM ONE (10:00)
[2016-11-18] MEDS ORDERED: Pneumococcal 23-Valent Vaccine IM ONE (10:00)
[2016-11-18] MEDS: Enoxaparin 40 mg Syringe SC SCH (10:12)
--- NOTE | 2016-11-18 13:56 | CP.PCM.PN ---
<Amy Mitchell - Last Filed: 11/18/16 14:04> Subjective - Date & Time of Evaluation Date of Evaluation: 11/18/16 Time of Evaluation: 08:00 - Subjective Subjective: PGY [address] Atkinson: Patient was seen and examined at bedside today. He states that his pain has improved with medication to a 4/10. He reports some discharge from his scrotum which has remained the same since admission. Patient denies fever/chills. He reports that he is able to tolerate his diet. He has no other complaints such as headache, changes in vision, CP, SOB, dizziness, abd pain, N/V, diarrhea/ constipation, urinary complains. Objective - Vital Signs/Intake and Output Vital Signs (last 24 hours): Temp Pulse Resp BP Pulse Ox 98.4 F 93 H 20 123/82 97 11/18/16 08:29 11/18/16 08:29 11/18/16 08:29 11/18/16 08:29 11/18/16 08:29 Intake and Output: 11/18/16 11/18/16 06:59 18:59 Intake Total 1700 Balance 1700 - Medications Medications: Current Medications Acetaminophen (Tylenol 325mg Tab) 650 mg PO Q6 PRN PRN Reason: Pain, Mild (1-3) Last Admin: 11/17/16 05:29 Dose: 650 mg Enoxaparin Sodium (Lovenox) 40 mg SC DAILY [facility] Last Admin: 11/18/16 10:12 Dose: 40 mg Famotidine (Pepcid) 20 mg PO BID [facility] Last Admin: 11/18/16 10:12 Dose: 20 mg Piperacillin Sod/Tazobactam (Sod 3.375 gm/ Sodium Chloride) 100 mls @ 200 mls/ hr IVPB Q6H [facility] Last Admin: 11/18/16 12:18 Dose: 200 mls/hr Vancomycin/Sodium Chloride (Vancocin) 200 mls @ 133 mls/hr IVPB Q12H [facility] Stop: 11/22/16 03:31 Last Admin: 11/18/16 03:40 Dose: 133 mls/hr Saccharomyces Boulardii (Florastor) 250 mg PO BID [facility] Tramadol HCl (Ultram) 50 mg PO TID PRN PRN Reason: Pain, moderate (4-7) Last Admin: 11/18/16 05:52 Dose: 50 mg - Labs Labs: 11/18/16 06:29 11/18/16 06:29 - Constitutional Appears: Non-toxic, No Acute Distress - Head Exam Head Exam: ATRAUMATIC, NORMAL INSPECTION - Eye Exam Eye Exam: EOMI, Normal appearance, PERRL Pupil Exam: NORMAL ACCOMODATION - ENT Exam ENT Exam: Mucous Membranes Moist - Neck Exam Neck Exam: Full ROM - Respiratory Exam Respiratory Exam: Clear to Ausculation Bilateral, NORMAL BREATHING PATTERN. absent: Accessory Muscle Use, Chest Wall Tenderness, Rales, Wheezes, Respiratory Distress - Cardiovascular Exam Cardiovascular Exam: REGULAR RHYTHM, +S1, +S2 - GI/Abdominal Exam GI & Abdominal Exam: Soft, Normal Bowel Sounds. absent: Distended, Firm, Guarding, Tenderness - Exam Exam: Scrotal Swelling Additional comments: + sanguineous purulent discharge from scrotal lesion with + erythema and tenderness - Extremities Exam Extremities Exam: Full ROM, Normal Inspection. absent: Calf Tenderness, Pedal Edema - Back Exam Back Exam: NORMAL INSPECTION. absent: CVA tenderness (L), CVA tenderness (R), paraspinal tenderness - Neurological Exam Neurological Exam: Alert, Awake, CN II-XII Intact, Oriented x3 Neuro motor strength exam: Left Upper Extremity: 5, Right Upper Extremity: 5, Left Lower Extremity: 5, Right Lower Extremity: 5 - Psychiatric Exam Psychiatric exam: Normal Affect, Normal Mood - Skin Skin Exam: Dry, Intact, Normal Color, Warm Assessment and Plan - Assessment and Plan (Free Text) Assessment: Left scrotal wall cellulitis - with extension to the left medial thigh and perineum with scrotal mass - possibly inflammatory but need to rule out malignancy - Pain to palpation with discharge from small, open sore - Abd/Pelvis CT 11/17 - nonspecific lymphadenopathy: bilateral prominent inguinal adenopathy measuring up to 11 mm. lymph node justin ethe left iliac artery measures 7mm in short axis. (1.7 cm fat containing umbilical hernia. Left L5 spondlolysis. mildly thick walled urinary bladder, hepatic steatosis, 13 mm hypodense lesion within the left lower pole kidney, possibly cyst, further eval with renal ultrasound suggested) - Testicular US 11/16 - Ill-defined extra testicular heterogeneous, hyperechoic, and hypervascular left scrotal mass appears solid. Scrotal wall thickening. Finding corresponds with palpable abnormality. Malignant neoplasm must be excluded. Abscess is considered less likely. Recommend urologic consultation. - Blood culture / - negative for 48 hours - urine culture / - negative - UA / - within normal limits - Wound culture 11/16 - prelim -> gram positive growth - Zosyn 3.375 mg IVPB Q 8 hours (started 11/16) - Vanc 1gm IVPB Q12 hours (started 11/16) - Florastor 250mg PO BID - Afebrile, but with leukocytosis - Tylenol PRN, Ultram 50mg TID prn pain - Urology consult - Dr. Li - help appreciated - ID consulted - Dr. Burrell - help appreciated - f/u testicular tumor markers: - AFP - 3.0 wnl - BHcG - <2.39 wnl - LDH - 301 - RPR, hepatitis, hiv - negative Leukocytosis - WBC 17.5 ( Trend: 15.3, 16.5 no bandemia) - Afebrile, denies f/c - Zosyn 3.375 mg IVPB Q 8 hours (started 11/16) - Vanc 1gm IVPB Q12 hours (started 11/16) - Vanc trough 6.6 (4/5 AM) - f/u am labs Kidney Lesion Incidental finding f/u Renal Ultrasound for further evaluation CT: 13 mm hypodense lesion within the left lower pole kidney, possibly cyst, PPX - Lovenox 40mc SC daily - Pepcid 20 mg PO BID - Patient is ambulating, SCDs - Regular diet <Osman Atkinson - Last Filed: 12/29/16 15:13> Objective - Vital Signs/Intake and Output Vital Signs (last 24 hours): Temp Pulse Resp BP Pulse Ox 98.4 F 86 20 119/80 99 11/24/16 08:15 11/24/16 08:52 11/24/16 08:15 11/24/16 08:15 11/24/16 08:15 - Labs Labs: 11/24/16 07:33 11/24/16 07:33 PT 13.8 SECONDS (9.7-12.2) H 11/19/16 11:56 INR 1.2 11/19/16 11:56 APTT 36 SECONDS (21-34) H 11/19/16 11:56 Attending/Attestation - Attestation I have personally seen and examined this patient.: Yes I have fully participated in the care of the patient.: Yes I have reviewed all pertinent clinical information, including history, physical exam and plan: Yes Notes (Text): Patient seen and examined with the resident. Agree with the resident's evaluation, assessment and plan. Left scrotal wall cellulitis - with extension to the left medial thigh and perineum with scrotal mass - possibly infectious/inflammatory but need to rule out malignancy
--- NOTE | 2016-11-18 15:52 | US ---
PROCEDURE: Ultrasound of the Kidneys HISTORY: further eval hyopdense lesion L lower pole kidney COMPARISON: None available. TECHNIQUE: Sonogram of the kidneys. FINDINGS: RIGHT KIDNEY: Measures: 11.1 cm. Normal in size, contour and echogenicity. No stone, solid mass lesion or hydronephrosis visualized. LEFT KIDNEY: Measures: 11.9 cm. Normal in size, contour and echogenicity. No calculus or hydronephrosis. Septated cyst in lower pole left kidney, 1.0 x 1.4 x 1.6 cm. Few thin internal septations noted. No flow within the septations on color Doppler interrogation. No other mass identified. OTHER FINDINGS: None. IMPRESSION: Septated 1.6 cm cyst lower pole left kidney. No additional abnormality.
[2016-11-18] MEDS: Saccharomyces Boulardi 250 mg Cap PO SCH (18:11)
[2016-11-19] MEDS: Vancomycin 1 gm/NS 200 ml 200 ML IVPB SCH ×2 (03:20→15:43)
[2016-11-19] MEDS: Piperacillin/Tazobact 3.375 GM in Sodium Chloride 100 ML IVPB SCH ×5 (05:40→22:46)
[2016-11-19 05:53] LABS: BASO # 0.1 K/uL (0.0-0.2); BASO % 0.4 % (0.0-2.0); EOS # 0.4 K/uL (0.0-0.7); EOS % 2.8 % (0.0-4.0); LYMPH # 2.3 K/uL (1.0-4.3); LYMPH % 18.8 % (20.0-40.0); MEAN CORPUSCULAR HEMOGLOBIN 29.3 pg (27.0-31.0); MEAN CORPUSCULAR HGB CONC 32.5 g/dL (33.0-37.0); MEAN PLATELET VOLUME 7.6 fL (7.2-11.7); MONO # 0.7 K/uL (0.0-0.8); MONO % 5.9 % (0.0-10.0); RED CELL DISTRIBUTION WIDTH 13.7 % (11.5-14.5); WHITE BLOOD COUNT 12.4 K/uL (4.8-10.8)
[2016-11-19 06:12] LABS: CHLORIDE 97 mmol/L (98-107); SODIUM 138 mmol/L (132-148)
[2016-11-19 06:13] LABS: POTASSIUM 4.3 mmol/L (3.6-5.2)
[2016-11-19 06:14] LABS: GFR AFRICAN-AMERICAN > 60
[2016-11-19 06:15] LABS: ALB/GLOB RATIO 0.9 (1.0-2.1); ALKALINE PHOSPHATASE 64 U/L (38-126); ALT/SGPT 20 U/L (21-72); AST/SGOT 17 U/L (17-59); BILIRUBIN,TOTAL 0.4 mg/dL (0.2-1.3); BLOOD UREA NITROGEN 10 mg/dL (9-20); CARBON DIOXIDE 29 mmol/L (22-30); GLUCOSE,RANDOM 89 mg/dL (75-110); PHOSPHOROUS 3.8 mg/dL (2.5-4.5); TOTAL PROTEIN 7.2 g/dL (6.3-8.3)
[2016-11-19 06:16] LABS: CALCIUM 8.3 mg/dl (8.6-10.4); MAGNESIUM 2.1 mg/dL (1.6-2.3)
[2016-11-19] MEDS: Saccharomyces Boulardi 250 mg Cap PO SCH ×2 (09:12→18:00)
[2016-11-19] MEDS: Enoxaparin 40 mg Syringe SC SCH (09:14)
--- NOTE | 2016-11-19 09:42 | CP.PCM.PN ---
<Amy Mitchell - Last Filed: 11/20/16 07:01> Subjective - Date & Time of Evaluation Date of Evaluation: 11/19/16 Time of Evaluation: 07:20 - Subjective Subjective: PGY [address] Vences: Patient was seen and examined at bedside today. He states that his pain has improved with medication to a 4-5/10. He does not want any more pain medication. He reports some discharge from his scrotum which has remained the same since admission. Patient denies fever/chills. He reports that he is able to tolerate his diet. He has no other complaints such as headache, changes in vision, CP, SOB, dizziness, abd pain, N/V, diarrhea/constipation, urinary complains. Patient is ambulating frequently. Objective - Vital Signs/Intake and Output Vital Signs (last 24 hours): Temp Pulse Resp BP Pulse Ox 98.3 F 84 20 127/85 97 11/19/16 08:00 11/19/16 08:33 11/19/16 08:00 11/19/16 08:00 11/19/16 08:00 Intake and Output: 11/19/16 11/19/16 06:59 18:59 Intake Total 700 Output Total 800 Balance -100 - Medications Medications: Current Medications Acetaminophen (Tylenol 325mg Tab) 650 mg PO Q6 PRN PRN Reason: Pain, Mild (1-3) Last Admin: 11/17/16 05:29 Dose: 650 mg Enoxaparin Sodium (Lovenox) 40 mg SC DAILY [facility] Last Admin: 11/19/16 09:14 Dose: 40 mg Famotidine (Pepcid) 20 mg PO BID [facility] Last Admin: 11/19/16 09:17 Dose: 20 mg Piperacillin Sod/Tazobactam (Sod 3.375 gm/ Sodium Chloride) 100 mls @ 200 mls/ hr IVPB Q6H [facility] Last Admin: 11/19/16 05:40 Dose: 200 mls/hr Vancomycin/Sodium Chloride (Vancocin) 200 mls @ 133 mls/hr IVPB Q12H [facility] Stop: 11/22/16 03:31 Last Admin: 11/19/16 03:20 Dose: 133 mls/hr Saccharomyces Boulardii (Florastor) 250 mg PO BID [facility] Last Admin: 11/19/16 09:12 Dose: 250 mg Tramadol HCl (Ultram) 50 mg PO TID PRN PRN Reason: Pain, moderate (4-7) Last Admin: 11/19/16 00:10 Dose: 50 mg - Labs Labs: 11/19/16 05:45 11/19/16 05:45 - Constitutional Appears: Non-toxic, No Acute Distress - Head Exam Head Exam: ATRAUMATIC, NORMAL INSPECTION - Eye Exam Eye Exam: EOMI, Normal appearance, PERRL Pupil Exam: NORMAL ACCOMODATION - ENT Exam ENT Exam: Mucous Membranes Moist - Neck Exam Neck Exam: Normal Inspection - Respiratory Exam Respiratory Exam: Clear to Ausculation Bilateral, NORMAL BREATHING PATTERN. absent: Respiratory Distress - Cardiovascular Exam Cardiovascular Exam: REGULAR RHYTHM, +S1, +S2 - GI/Abdominal Exam GI & Abdominal Exam: Soft, Normal Bowel Sounds. absent: Distended, Firm, Guarding, Tenderness - Exam Exam: Scrotal Swelling Additional comments: + discharge, improving - Extremities Exam Extremities Exam: Normal Inspection. absent: Calf Tenderness, Pedal Edema - Back Exam Back Exam: NORMAL INSPECTION. absent: CVA tenderness (L), CVA tenderness (R), paraspinal tenderness - Neurological Exam Neurological Exam: Alert, Awake, CN II-XII Intact, Oriented x3 Neuro motor strength exam: Left Upper Extremity: 5, Right Upper Extremity: 5, Left Lower Extremity: 5, Right Lower Extremity: 5 - Psychiatric Exam Psychiatric exam: Normal Affect, Normal Mood - Skin Skin Exam: Dry, Intact, Normal Color, Warm Assessment and Plan - Assessment and Plan (Free Text) Assessment: Left scrotal wall cellulitis - For I/D today in OR at 7PM with Dr. Li - Chest X ray, EKG and coags ordered - with extension to the left medial thigh and perineum with scrotal mass, indurated - possibly inflammatory but need to rule out malignancy - Pain to palpation with discharge from small, open sore with mild discharge - Wound culture 11/16 - prelim -> gram positive cocci - Strep. anguinosus ( sensitivity pending) - Zosyn 3.375 mg IVPB Q 8 hours (started 11/16) - Vanc 1gm IVPB Q12 hours (started 11/16) - Abd/Pelvis CT 11/17 - nonspecific lymphadenopathy: bilateral prominent inguinal adenopathy measuring up to 11 mm. lymph node justin ethe left iliac artery measures 7mm in short axis. (1.7 cm fat containing umbilical hernia. Left L5 spondlolysis. mildly thick walled urinary bladder, hepatic steatosis, 13 mm hypodense lesion within the left lower pole kidney, possibly cyst, further eval with renal ultrasound suggested) - Testicular US / - Ill-defined extra testicular heterogeneous, hyperechoic, and hypervascular left scrotal mass appears solid. Scrotal wall thickening. Finding corresponds with palpable abnormality. Malignant neoplasm must be excluded. Abscess is considered less likely. Recommend urologic consultation. - Blood culture / - negative for 48 hours - urine culture / - negative - UA / - within normal limits - Florastor 250mg PO BID - Afebrile, but with leukocytosis - Tylenol PRN, Ultram 50mg TID prn pain - Urology consult - Dr. Li - help appreciated - ID consulted - Dr. Burrell - help appreciated - f/u testicular tumor markers: - AFP - 3.0 wnl - BHcG - <2.39 wnl - LDH - 301 - RPR, hepatitis, hiv - negative Leukocytosis - WBC 12.4 ( Trend: 17.5 15.3, 16.5 no bandemia) - Afebrile, denies f/c - Wound culture 11/16 - prelim -> gram positive cocci - Strep. anguinosus ( sensitivity pending) - Zosyn 3.375 mg IVPB Q 8 hours (started 11/16) - Vanc 1gm IVPB Q12 hours (started 11/16) - Vanc trough 6.6 (4/5 AM) - f/u am labs Kidney Lesion Incidental finding f/u Renal Ultrasound for further evaluation CT: 13 mm hypodense lesion within the left lower pole kidney, possibly cyst -> benign, pt informed of finding. Can follow up outpatient PPX - Lovenox 40mc SC daily - Pepcid 20 mg PO BID - Patient is ambulating, SCDs - Regular diet <Obey Vences - Last Filed: 11/24/16 13:34> Objective - Vital Signs/Intake and Output Vital Signs (last 24 hours): Temp Pulse Resp BP Pulse Ox 98.4 F 86 20 119/80 99 11/24/16 08:15 11/24/16 08:52 11/24/16 08:15 11/24/16 08:15 11/24/16 08:15 Intake and Output: 11/24/16 11/24/16 06:59 18:59 Intake Total 1040 Output Total 600 Balance 440 - Medications Medications: Current Medications Acetaminophen (Tylenol 325mg Tab) 650 mg PO Q6 PRN PRN Reason: Pain, Mild (1-3) Last Admin: 11/22/16 00:57 Dose: 650 mg Al Hydrox/Mg Hydrox/Simethicone (Maalox Plus 30 Ml) 30 ml PO DAILY [facility] Last Admin: 11/24/16 09:51 Dose: 30 ml Docusate Sodium (Colace) 100 mg PO DAILY [facility] Last Admin: 11/24/16 09:50 Dose: 100 mg Piperacillin Sod/Tazobactam (Sod 3.375 gm/ Sodium Chloride) 100 mls @ 200 mls/ hr IVPB Q6H [facility] Last Admin: 11/24/16 04:48 Dose: 200 mls/hr Gentamicin Sulfate 80 mg/ (Sodium Chloride) 102 mls @ 100 mls/hr IVPB Q8H [facility] Last Admin: 11/24/16 05:49 Dose: 100 mls/hr Vancomycin HCl 1,000 mg/ (Sodium Chloride) 250 mls @ 166.6 mls/hr IVPB Q12H [facility] Last Admin: 11/24/16 03:03 Dose: 166.6 mls/hr Oxycodone/Acetaminophen (Percocet 5/325 Mg Tab) 1 tab PO Q4H PRN PRN Reason: Pain, moderate (4-7) Stop: 11/24/16 21:07 Last Admin: 11/23/16 14:40 Dose: 1 tab Pantoprazole Sodium (Protonix Inj) 40 mg IVP DAILY [facility] Last Admin: 11/24/16 09:50 Dose: 40 mg Saccharomyces Boulardii (Florastor) 250 mg PO BID [facility] Last Admin: 11/24/16 09:50 Dose: 250 mg Tramadol HCl (Ultram) 50 mg PO TID PRN PRN Reason: Pain, moderate (4-7) Last Admin: 11/19/16 00:10 Dose: 50 mg - Labs Labs: 11/24/16 07:33 11/24/16 07:33 PT 13.8 SECONDS (9.7-12.2) H 11/19/16 11:56 INR 1.2 11/19/16 11:56 APTT 36 SECONDS (21-34) H 11/19/16 11:56 Attending/Attestation - Attestation I have personally seen and examined this patient.: Yes I have fully participated in the care of the patient.: Yes I have reviewed all pertinent clinical information, including history, physical exam and plan: Yes Notes (Text): 11/24/16 13:34 Patient was seen and examined at bedside with the resident This is a late computer entry Continue antibiotics as per recommendations of ID Plan for surgery as per urology Discussed the plan of care with the resident and I agree with the above history and physical and assessment/plan by the resident.
[2016-11-19 12:13] LABS: INR 1.2
--- NOTE | 2016-11-19 13:24 | PN ---
DATE: 11/19/2016 The patient is currently feeling better this morning. He has decreased pain and swelling of the left scrotum. His white count is down to around 12,000 on Zosyn and vancomycin IV antibiotics. PHYSICAL EXAMINATION: However, shows that he still has tenderness in the perineal area and also tend erness and induration in the left medial thigh area. He is also draining serosanguineous fluid from the scrotal sac continuously. Abdominopelvic CT tumor protocol showed just some inguinal lymphadenopathy. No retroperitoneal lymph adenopathy. All his testicular tumor markers were negative, including the alpha fetoprotein, beta hC G, and LDH. We will now schedule the patient for an I and D of the left scrotal sac and packing of the wound and irrigation of the wound and exploration of the perineal area to make sure that everything is draining properly. The ultrasound did not show a testicular mass. It showed a scrotal mass. Dr. Burrell, i nfectious disease, is also on this case. This will be discussed with Dr. Burrell. Markus Li MD cc: [id number] TT: 11/19/2016 13:23:32 Confirmation # [id number] Dictation # [id number] tn
--- NOTE | 2016-11-19 15:28 | RAD ---
HISTORY: pre op COMPARISON: No prior. TECHNIQUE: Chest PA and lateral FINDINGS: LUNGS: No active pulmonary disease. PLEURA: No significant pleural effusion identified. No pneumothorax apparent. CARDIOVASCULAR: Normal. OSSEOUS STRUCTURES: No significant abnormalities. VISUALIZED UPPER ABDOMEN: Normal. OTHER FINDINGS: None. IMPRESSION: No active disease.
[2016-11-19] MEDS ORDERED: Midazolam 2 MG/2 ML VIAL ONE (18:58)
[2016-11-19] MEDS ORDERED: Propofol 10 mg/ml Inj (20 ML) ONE ×2 (18:58→20:28)
[2016-11-19] MEDS ORDERED: Lactated Ringer's 1,000 ML IV ONE (19:11)
[2016-11-19] MEDS ORDERED: Bacitracin 500 Units/gm Oint Foilpak UD ONE (19:24)
[2016-11-19] MEDS ORDERED: ePHEDrine 50 mg/ml Inj ONE (19:59)
[2016-11-19] MEDS ORDERED: Morphine 4 MG/ML VIAL IV PRN (21:02)
[2016-11-19] MEDS: HYDROmorphone 0.5 mg/0.5 ml ISec IVP PRN ×2 (21:15→21:33)
--- NOTE | 2016-11-19 21:39 | OP ---
PROCEDURE DATE: 11/19/2016 PROCEDURE: I and D left scrotal and perineal abscesses. PREOPERATIVE DIAGNOSES: Left scrotal and perineal abscess. POSTOPERATIVE DIAGNOSES: Left scrotal and perineal abscess. ANESTHESIA: Laryngeal mask anesthesia with Dr. Deuce Starks. SURGEON: Dr. Li. AUTOMOTIVE MECHANIC: Dr. Joaquin Melendez. PROCEDURE: The patient was placed on the operative table in the dorsal lithotomy position and preppe d and draped in usual sterile fashion with Betadine solution. A #16 Ukrainian Fitzpatrick catheter was insert ed into the bladder and the balloon inflated to 10 mL with sterile water. The catheter was connected to gravity drainage with an michelle urine return. Catheter was maintained on the patient's abdomen du ring the procedure. Next, the scrotum was completely examined and there were indurated areas noted i n the left superior scrotal sac more laterally and also extended to the left medial thigh area. Ther e was also an induration with some swelling in the more medial perineal area towards the right side. Incisions were made over all these areas and a minimal amount of purulent drainage was obtained. Th nely areas were cultured. The left scrotal sac was cultured with aerobic and anaerobic cultures. Als o, biopsy was obtained from the left scrotal wall and also a specimen of the scrotal skin was sent fo r culture and sensitivity. After all these areas were drained and all communications were bluntly di ssected with a fingertip, all wounds were irrigated with peroxide solution thoroughly and then the wo unds were packed with quarter inch iodoform gauze. Sterile gauze dressings were applied to all surfa francis and covered with a lap pad and held in place using a large scrotal support. The patient tolerate d the procedure well with about 50 mL of blood loss and was brought to the recovery area in satisfact ory condition. Markus Li MD cc: [id number] TT: 11/19/2016 21:39:08 rn
[2016-11-19] MEDS: Oxycodone/Acetaminophen 5/325 mg Tab PO PRN (22:54)
[2016-11-20] MEDS: Vancomycin 1 gm/NS 200 ml 200 ML IVPB SCH ×2 (02:52→15:59)
[2016-11-20] MEDS: Oxycodone/Acetaminophen 5/325 mg Tab PO PRN ×3 (02:58→23:00)
[2016-11-20] MEDS: Piperacillin/Tazobact 3.375 GM in Sodium Chloride 100 ML IVPB SCH ×3 (05:40→18:00)
[2016-11-20 08:01] LABS: BASO % 0.3 % (0.0-2.0); EOS # 0.3 K/uL (0.0-0.7); EOS % 2.7 % (0.0-4.0); HEMATOCRIT 34.6 % (35.0-51.0); LYMPH # 1.5 K/uL (1.0-4.3); LYMPH % 14.1 % (20.0-40.0); MEAN CELL VOLUME 89.4 fL (80.0-94.0); MEAN CORPUSCULAR HEMOGLOBIN 29.6 pg (27.0-31.0); MEAN CORPUSCULAR HGB CONC 33.1 g/dL (33.0-37.0); MEAN PLATELET VOLUME 7.4 fL (7.2-11.7); MONO # 0.7 K/uL (0.0-0.8); MONO % 6.4 % (0.0-10.0); RED CELL DISTRIBUTION WIDTH 13.7 % (11.5-14.5); WHITE BLOOD COUNT 10.5 K/uL (4.8-10.8)
[2016-11-20 09:18] LABS: CHLORIDE 97 mmol/L (98-107); SODIUM 141 mmol/L (132-148)
[2016-11-20 09:19] LABS: POTASSIUM 4.4 mmol/L (3.6-5.2)
[2016-11-20 09:20] LABS: GFR AFRICAN-AMERICAN > 60
[2016-11-20 09:21] LABS: ALB/GLOB RATIO 0.9 (1.0-2.1); ALKALINE PHOSPHATASE 64 U/L (38-126); AST/SGOT 17 U/L (17-59); BILIRUBIN,TOTAL 0.9 mg/dL (0.2-1.3); BLOOD UREA NITROGEN 7 mg/dL (9-20); CARBON DIOXIDE 27 mmol/L (22-30); GLUCOSE,RANDOM 75 mg/dL (75-110); PHOSPHOROUS 4.2 mg/dL (2.5-4.5); TOTAL PROTEIN 7.2 g/dL (6.3-8.3)
[2016-11-20 09:22] LABS: ALT/SGPT 25 U/L (21-72); CALCIUM 7.9 mg/dl (8.6-10.4)
[2016-11-20] MEDS: Saccharomyces Boulardi 250 mg Cap PO SCH ×2 (10:15→17:39)
[2016-11-20] MEDS: Enoxaparin 40 mg Syringe SC SCH (10:15)
--- NOTE | 2016-11-20 10:26 | CP.PCM.PN ---
<Amy Mitchell - Last Filed: 11/20/16 10:23> Subjective - Date & Time of Evaluation Date of Evaluation: 11/20/16 Time of Evaluation: 07:25 - Subjective Subjective: PGY [address] Grant: Patient was seen and examined at bedside today. He states that his pain has improved with medication but now is a little worse since the ID done last eveneing. A rivera is now in place draining light yellow clear urine. He does not want any more pain medication. Patient denies fever/chills. He reports that he is able to tolerate his diet. He has no other complaints such as headache, changes in vision, CP, SOB, dizziness, abd pain, N/V, diarrhea/constipation, urinary complains. Patient is ambulating frequently. Objective - Vital Signs/Intake and Output Vital Signs (last 24 hours): Temp Pulse Resp BP Pulse Ox 98.2 F 76 20 136/81 95 11/20/16 08:10 11/20/16 08:10 11/20/16 08:10 11/20/16 08:10 11/20/16 08:10 Intake and Output: 11/20/16 11/20/16 06:59 18:59 Intake Total 540 Output Total 625 600 Balance -625 -60 - Medications Medications: Current Medications Acetaminophen (Tylenol 325mg Tab) 650 mg PO Q6 PRN PRN Reason: Pain, Mild (1-3) Last Admin: 11/17/16 05:29 Dose: 650 mg Enoxaparin Sodium (Lovenox) 40 mg SC DAILY [facility] Last Admin: 11/20/16 10:15 Dose: 40 mg Famotidine (Pepcid) 20 mg PO BID [facility] Last Admin: 11/20/16 10:14 Dose: 20 mg Piperacillin Sod/Tazobactam (Sod 3.375 gm/ Sodium Chloride) 100 mls @ 200 mls/ hr IVPB Q6H [facility] Last Admin: 11/20/16 05:40 Dose: 200 mls/hr Vancomycin/Sodium Chloride (Vancocin) 200 mls @ 133 mls/hr IVPB Q12H [facility] Stop: 11/22/16 03:31 Last Admin: 11/20/16 02:52 Dose: 133 mls/hr Morphine Sulfate (Morphine) 4 mg IV Q4 PRN PRN Reason: Pain, severe (8-10) Stop: 11/20/16 16:01 Oxycodone/Acetaminophen (Percocet 5/325 Mg Tab) 1 tab PO Q4H PRN PRN Reason: Pain, moderate (4-7) Stop: 11/22/16 21:07 Last Admin: 11/20/16 02:58 Dose: 1 tab Saccharomyces Boulardii (Florastor) 250 mg PO BID [facility] Last Admin: 11/20/16 10:15 Dose: 250 mg Tramadol HCl (Ultram) 50 mg PO TID PRN PRN Reason: Pain, moderate (4-7) Last Admin: 11/19/16 00:10 Dose: 50 mg - Labs Labs: 11/20/16 07:52 11/20/16 07:52 PT 13.8 SECONDS (9.7-12.2) H 11/19/16 11:56 INR 1.2 11/19/16 11:56 APTT 36 SECONDS (21-34) H 11/19/16 11:56 - Constitutional Appears: Non-toxic, No Acute Distress - Head Exam Head Exam: ATRAUMATIC, NORMAL INSPECTION - Eye Exam Eye Exam: EOMI, Normal appearance, PERRL Pupil Exam: NORMAL ACCOMODATION - ENT Exam ENT Exam: Mucous Membranes Moist - Respiratory Exam Respiratory Exam: Clear to Ausculation Bilateral, NORMAL BREATHING PATTERN. absent: Accessory Muscle Use, Chest Wall Tenderness, Rales, Wheezes, Respiratory Distress - Cardiovascular Exam Cardiovascular Exam: REGULAR RHYTHM, +S1, +S2 - GI/Abdominal Exam GI & Abdominal Exam: Soft, Normal Bowel Sounds. absent: Distended, Firm, Guarding, Tenderness - Exam Additional comments: erythema to scrotum, now s/p ID with packing in place. Rivera in place - Extremities Exam Extremities Exam: Normal Inspection. absent: Calf Tenderness, Pedal Edema - Back Exam Back Exam: NORMAL INSPECTION. absent: CVA tenderness (L), CVA tenderness (R), paraspinal tenderness - Neurological Exam Neurological Exam: Alert, Awake, CN II-XII Intact, Oriented x3 Neuro motor strength exam: Left Upper Extremity: 5, Right Upper Extremity: 5, Left Lower Extremity: 5, Right Lower Extremity: 5 - Psychiatric Exam Psychiatric exam: Normal Affect, Normal Mood - Skin Skin Exam: Dry, Intact, Normal Color, Warm Assessment and Plan - Assessment and Plan (Free Text) Assessment: Left scrotal wall cellulitis - S/P ID of the left scrotal sac and packing of the wound POD #1 - Rivera in place draining light yellow clear urine, good urine output - Wound culture 4/3 - prelim -> gram positive cocci - Strep. anguinosus (only resistant to erythromycin) - with extension to the left medial thigh and perineum with scrotal mass, indurated - possibly inflammatory but need to rule out malignancy - Pain to palpation with discharge from small, open sore with mild discharge - Zosyn 3.375 mg IVPB Q 8 hours (started 11/16) - Vanc 1gm IVPB Q12 hours (started 11/16) - Abd/Pelvis CT 4 - nonspecific lymphadenopathy: bilateral prominent inguinal adenopathy measuring up to 11 mm. lymph node along the left iliac artery measures 7mm in short axis. (1.7 cm fat containing umbilical hernia. Left L5 spondlolysis. mildly thick walled urinary bladder, hepatic steatosis, 13 mm hypodense lesion within the left lower pole kidney, possibly cyst, further eval with renal ultrasound suggested) - Testicular US 4/3 - Ill-defined extra testicular heterogeneous, hyperechoic, and hypervascular left scrotal mass appears solid. Scrotal wall thickening. Finding corresponds with palpable abnormality. Malignant neoplasm must be excluded. Abscess is considered less likely. Recommend urologic consultation. - Blood culture 4/3 - negative for 48 hours - urine culture 4/3 - negative - UA 4/3 - within normal limits - Florastor 250mg PO BID - Afebrile, but with leukocytosis - Tylenol PRN, Ultram 50mg TID prn pain - Urology consult - Dr. Li - help appreciated - ID consulted - Dr. Burrell - help appreciated - testicular tumor markers: (tumor ruled out based on marker and CT) - AFP - 3.0 wnl - BHcG - <2.39 wnl - LDH - 301 - RPR, hepatitis, hiv - negative Leukocytosis - WBC 10.5 ( Trend: 12.4,17.5 15.3, 16.5 no bandemia) - Afebrile, denies f/c - Wound culture /3 - prelim -> gram positive cocci - Strep. anguinosus (only resistant to erythromycin) - Zosyn 3.375 mg IVPB Q 8 hours (started 11/16) - Vanc 1gm IVPB Q12 hours (started 11/16) - Vanc trough 6.6 (4/5 AM) - f/u am labs Kidney Lesion Incidental finding - marianin. Pt notified about finding f/u Renal Ultrasound for further evaluation - septated 1.6 cm cyst lower pole kidney CT: 13 mm hypodense lesion within the left lower pole kidney, possibly cyst -> benign, pt informed of finding. Can follow up outpatient PPX - Lovenox 40mc SC daily - Pepcid 20 mg PO BID - Patient is ambulating, SCDs - Regular diet <Grant,Peter H - Last Filed: 11/20/16 14:59> Objective - Vital Signs/Intake and Output Vital Signs (last 24 hours): Temp Pulse Resp BP Pulse Ox 98.2 F 76 20 136/81 95 11/20/16 08:10 11/20/16 08:10 11/20/16 08:10 11/20/16 08:10 11/20/16 08:10 Intake and Output: 11/20/16 11/20/16 06:59 18:59 Intake Total 540 Output Total 625 600 Balance -625 -60 - Medications Medications: Current Medications Acetaminophen (Tylenol 325mg Tab) 650 mg PO Q6 PRN PRN Reason: Pain, Mild (1-3) Last Admin: 11/17/16 05:29 Dose: 650 mg Enoxaparin Sodium (Lovenox) 40 mg SC DAILY [facility] Last Admin: 11/20/16 10:15 Dose: 40 mg Famotidine (Pepcid) 20 mg PO BID [facility] Last Admin: 11/20/16 10:14 Dose: 20 mg Piperacillin Sod/Tazobactam (Sod 3.375 gm/ Sodium Chloride) 100 mls @ 200 mls/ hr IVPB Q6H [facility] Last Admin: 11/20/16 10:30 Dose: 200 mls/hr Vancomycin/Sodium Chloride (Vancocin) 200 mls @ 133 mls/hr IVPB Q12H [facility] Stop: 11/22/16 03:31 Last Admin: 11/20/16 02:52 Dose: 133 mls/hr Morphine Sulfate (Morphine) 4 mg IV Q4 PRN PRN Reason: Pain, severe (8-10) Stop: 11/20/16 16:01 Oxycodone/Acetaminophen (Percocet 5/325 Mg Tab) 1 tab PO Q4H PRN PRN Reason: Pain, moderate (4-7) Stop: 11/22/16 21:07 Last Admin: 11/20/16 13:27 Dose: 1 tab Saccharomyces Boulardii (Florastor) 250 mg PO BID [facility] Last Admin: 11/20/16 10:15 Dose: 250 mg Tramadol HCl (Ultram) 50 mg PO TID PRN PRN Reason: Pain, moderate (4-7) Last Admin: 11/19/16 00:10 Dose: 50 mg - Labs Labs: 11/20/16 07:52 11/20/16 07:52 PT 13.8 SECONDS (9.7-12.2) H 11/19/16 11:56 INR 1.2 11/19/16 11:56 APTT 36 SECONDS (21-34) H 11/19/16 11:56 Attending/Attestation - Attestation I have personally seen and examined this patient.: Yes I have fully participated in the care of the patient.: Yes I have reviewed all pertinent clinical information, including history, physical exam and plan: Yes Notes (Text): Medical Attending: Patient was seen and examined by me. Agree with the above note by the resident. The patient was with family members when we came and saw him. Case was reviewed with the medical residents as well as previous notes and documentations. Patient has had a very eventful night. He was tired when we saw him. He is S/P going to OR last night with urology. He had an extensive scrotal wall cellultis last night as well as rivera insertion. He has also has an STD work up. At this time currently pending the cultures taken from the the scrotal area. Lab work shows a decreasing WBC count that is now 10, decreased from 17. Thank you Hero Grant
--- NOTE | 2016-11-20 19:41 | CP.PCM.PN ---
Subjective - Date & Time of Evaluation Date of Evaluation: 11/20/16 Time of Evaluation: 04:00 - Subjective Subjective: dictated Objective - Vital Signs/Intake and Output Vital Signs (last 24 hours): Temp Pulse Resp BP Pulse Ox 100.8 F H 106 H 20 112/68 97 11/20/16 16:00 11/20/16 16:00 11/20/16 16:00 11/20/16 16:00 11/20/16 16:00 Intake and Output: 11/20/16 11/21/16 18:59 06:59 Intake Total 540 Output Total 600 Balance -60 - Medications Medications: Current Medications Acetaminophen (Tylenol 325mg Tab) 650 mg PO Q6 PRN PRN Reason: Pain, Mild (1-3) Last Admin: 11/17/16 05:29 Dose: 650 mg Enoxaparin Sodium (Lovenox) 40 mg SC DAILY [facility] Last Admin: 11/20/16 10:15 Dose: 40 mg Famotidine (Pepcid) 20 mg PO BID [facility] Last Admin: 11/20/16 17:40 Dose: 20 mg Piperacillin Sod/Tazobactam (Sod 3.375 gm/ Sodium Chloride) 100 mls @ 200 mls/ hr IVPB Q6H [facility] Last Admin: 11/20/16 10:30 Dose: 200 mls/hr Vancomycin/Sodium Chloride (Vancocin) 200 mls @ 133 mls/hr IVPB Q12H [facility] Stop: 11/22/16 03:31 Last Admin: 11/20/16 15:59 Dose: 133 mls/hr Gentamicin Sulfate 80 mg/ (Sodium Chloride) 102 mls @ 100 mls/hr IVPB Q8H [facility] Oxycodone/Acetaminophen (Percocet 5/325 Mg Tab) 1 tab PO Q4H PRN PRN Reason: Pain, moderate (4-7) Stop: 11/22/16 21:07 Last Admin: 11/20/16 13:27 Dose: 1 tab Saccharomyces Boulardii (Florastor) 250 mg PO BID [facility] Last Admin: 11/20/16 17:39 Dose: 250 mg Tramadol HCl (Ultram) 50 mg PO TID PRN PRN Reason: Pain, moderate (4-7) Last Admin: 11/19/16 00:10 Dose: 50 mg - Labs Labs: 11/20/16 07:52 11/20/16 07:52 PT 13.8 SECONDS (9.7-12.2) H 11/19/16 11:56 INR 1.2 11/19/16 11:56 APTT 36 SECONDS (21-34) H 11/19/16 11:56
--- NOTE | 2016-11-20 20:01 | PN ---
DATE: 11/20/2016 The patient is postop day #1 I and D of left scrotal and perineal abscesses, with irrigation of the wounds with peroxide, and packing of the wound with iodoform gauze. The patient is currently running a low-grade temperature of 100.8 postop, but his white count has dropped from 12,000 and change down to 10.5 this morning, with his hemoglobin and hematocrit at 11.5 and 34.6 respectively, and his platelet count was 297,000. His chem profile this morning was sodium of 141, potassium 4.4, chloride 97, CO2 of 27, BUN and creatinine of 0.8 respectively, and a glucose of 75. The patient is now resting relatively comfortable, and pain is completely controlled on oral Percocet 5/325 mg on a p.r.n. basis. However, when his dressing was changed this morning, not removal of the packing, but just a dressing change, he was very sensitive to pain at that time. We will now schedule the patient for removal and repacking of his wounds, and also irrigation of his wounds with peroxide, and repacking with iodoform gauze in the a.m. under anesthesia. Dr. Burrell, infectious disease, is currently following this case. Markus Li MD cc: [phone] TT: 11/20/2016 20:00:14 Confirmation # [id number] Dictation # [id number]
--- NOTE | 2016-11-20 20:36 | PN ---
DATE: 11/20/2016 SUBJECTIVE: The patient was seen today. He has been having fevers now and he had an I and D done la st night. He did have a fever and he did have pain and he was concerned. PHYSICAL EXAMINATION: VITAL SIGNS: Temperature 100.8, pulse was 106, blood pressure 112/68, respirations are 20. HEENT: Head is atraumatic, normocephalic. NECK: Supple. LUNGS: Clear. HEART: S1, S2, tachycardic. ABDOMEN: Soft. He has packing in place. He had a Fitzpatrick catheter. EXTREMITIES: Had no edema, clubbing or cyanosis. LABORATORY DATA: Had white count of 10.5, hemoglobin 11.5, hematocrit 34, platelet count is 297. Hi s BUN and creatinine is normal. His wound culture came out Streptococcus anginosis and it is suscept ible to vancomycin and penicillin . He is on vancomycin and Zosyn. We will continue those and since he is still having fever, will add g entamicin and will follow with the urologist. I would also get an echo done because he says he has h ad ____ for a long time, just want to make sure he does not have any vegetation. They can do it sunday rrow. Will give gentamicin for 3 days and to monitor the creatinine and CBC. Jazmyn Burrell MD cc: [id number] TT: 11/20/2016 20:35:13 Confirmation # [id number] Dictation # [id number]
[2016-11-21] MEDS: Piperacillin/Tazobact 3.375 GM in Sodium Chloride 100 ML IVPB SCH ×5 (00:20→22:47)
[2016-11-21 03:49] LABS: BASO # 0.1 K/uL (0.0-0.2); BASO % 0.5 % (0.0-2.0); EOS # 0.3 K/uL (0.0-0.7); EOS % 2.6 % (0.0-4.0); HEMATOCRIT 36.9 % (35.0-51.0); LYMPH # 1.3 K/uL (1.0-4.3); LYMPH % 12.6 % (20.0-40.0); MEAN CELL VOLUME 89.4 fL (80.0-94.0); MEAN CORPUSCULAR HEMOGLOBIN 28.9 pg (27.0-31.0); MEAN CORPUSCULAR HGB CONC 32.4 g/dL (33.0-37.0); MEAN PLATELET VOLUME 7.4 fL (7.2-11.7); MONO # 0.8 K/uL (0.0-0.8); MONO % 8.4 % (0.0-10.0); RED CELL DISTRIBUTION WIDTH 13.1 % (11.5-14.5); WHITE BLOOD COUNT 10.1 K/uL (4.8-10.8)
[2016-11-21 03:58] LABS: CHLORIDE 98 mmol/L (98-107); POTASSIUM 5.1 mmol/L (3.6-5.2); SODIUM 139 mmol/L (132-148)
[2016-11-21 04:00] LABS: AST/SGOT 21 U/L (17-59); BILIRUBIN,TOTAL 0.9 mg/dL (0.2-1.3); CARBON DIOXIDE 27 mmol/L (22-30); GFR AFRICAN-AMERICAN > 60; TOTAL PROTEIN 8.2 g/dL (6.3-8.3)
[2016-11-21] MEDS: Vancomycin 1 gm/NS 200 ml 200 ML IVPB SCH ×2 (04:00→16:25)
[2016-11-21 04:01] LABS: ALKALINE PHOSPHATASE 67 U/L (38-126); ALT/SGPT 17 U/L (21-72); BLOOD UREA NITROGEN 5 mg/dL (9-20); CALCIUM 8.7 mg/dl (8.6-10.4); GLUCOSE,RANDOM 94 mg/dL (75-110); PHOSPHOROUS 4.5 mg/dL (2.5-4.5)
[2016-11-21] MEDS: Enoxaparin 40 mg Syringe SC SCH ×2 (10:40→14:05)
[2016-11-21] MEDS: Saccharomyces Boulardi 250 mg Cap PO SCH ×2 (11:04→18:30)
[2016-11-21] MEDS ORDERED: Lactated Ringer's 1,000 ML IV ONE (11:15)
[2016-11-21] MEDS ORDERED: Propofol 10 mg/ml Inj (20 ML) ONE (11:27)
[2016-11-21] MEDS ORDERED: Midazolam 2 MG/2 ML VIAL ONE (11:27)
[2016-11-21] MEDS: Alum-Mag Hydrox-Simethicone Susp (30 mL) PO SCH (11:31)
[2016-11-21] MEDS ORDERED: HYDROmorphone 0.5 mg/0.5 ml ISec IVP PRN (11:59)
--- NOTE | 2016-11-21 12:00 | PCM.SURG1 ---
Surgeon's Initial Post Op Note - Surgeon's Notes Surgeon: Dr. Li Edge Gluer: Dr. Zarate PGY1 Type of Anesthesia: General IV Pre-Operative Diagnosis: scrotal and perineal abscess Operative Findings: see dictation Post-Operative Diagnosis: same Operation Performed: packing change and irrigation Specimen/Specimens Removed: none Estimated Blood Loss: EBL {In ML}: 10 Blood Products Given: N/A Drains Used: No Drains Post-Op Condition: Good Date of Surgery/Procedure: 11/21/16 Time of Surgery/Procedure: 11:15
--- NOTE | 2016-11-21 12:23 | OP ---
PROCEDURE DATE: 11/21/2016 PREOPERATIVE DIAGNOSIS: Multiple scrotal and perineal abscesses. PROCEDURE: Change of packing for all 3 scrotal and perineal wounds and irrigation of all wounds sites with peroxide and removal of his Fitzpatrick catheter. DESCRIPTION OF PROCEDURE: The patient was placed on the operative table in the dorsal lithotomy position, prepped and draped in usual sterile fashion with Betadine solution. The Fitzpatrick catheter was taped on to the abdomen with the penis. Next, all packings from the 3 wounds were completely removed and replaced with half inch iodoform gauze. The original packing was quarter inch iodoform gauze and all these packings were completely removed. The wounds prior to repacking of the wounds were thoroughly irrigated completely with peroxide. Then, the wounds were all repacked with half inch iodoform gauze. A single 3 o chromic suture was placed at the mid left scrotal wound. At the end of the procedure, gauze dressings which were all held in place using a large scrotal support. The patient tolerated the procedure well with about 10 mL of blood loss and brought to the recovery room in satisfactory condition. Dr. Janine Zarate was the real estate executive assistant for the procedure. Markus Li MD cc: [phone] TT: 11/21/2016 12:23:09 ashley DOSS
[2016-11-21] MEDS ORDERED: Iodixanol 320 MG/ML 100 ML BOTTLE IV ONE ×2 (12:50→18:30)
--- NOTE | 2016-11-21 14:17 | CP.PCM.PN ---
<Ella Roa H - Last Filed: 11/21/16 14:15> Subjective - Date & Time of Evaluation Date of Evaluation: 11/21/16 Time of Evaluation: 08:50 - Subjective Subjective: PGY2 Medicine Note - Dr. Atkinson's service: Patient seen and examined at bedside this AM. Patient reports reproducible chest pain on the sides of his chest exacerbated by walking. Patient says it feels like a burning pain but also sometimes like a pressure. Patient also has epigastric pain. Patient denies fever, chills, SOB, abdominal pain, nausea, vomiting, diarrhea, constipation, dysuria. Patient has rivera cath in. Objective - Vital Signs/Intake and Output Vital Signs (last 24 hours): Temp Pulse Resp BP Pulse Ox 98 F 99 H 14 122/80 98 11/21/16 11:56 11/21/16 12:42 11/21/16 12:42 11/21/16 12:42 11/21/16 12:42 Intake and Output: 11/21/16 11/21/16 06:59 18:59 Intake Total 300 400 Output Total 500 Balance 300 -100 - Medications Medications: Current Medications Acetaminophen (Tylenol 325mg Tab) 650 mg PO Q6 PRN PRN Reason: Pain, Mild (1-3) Last Admin: 11/17/16 05:29 Dose: 650 mg Al Hydrox/Mg Hydrox/Simethicone (Maalox Plus 30 Ml) 30 ml PO DAILY [facility] Last Admin: 11/21/16 11:31 Dose: Not Given Docusate Sodium (Colace) 100 mg PO DAILY [facility] Enoxaparin Sodium (Lovenox) 40 mg SC DAILY [facility] Last Admin: 11/21/16 14:05 Dose: 40 mg Piperacillin Sod/Tazobactam (Sod 3.375 gm/ Sodium Chloride) 100 mls @ 200 mls/ hr IVPB Q6H [facility] Last Admin: 11/21/16 11:25 Dose: 100 mls Vancomycin/Sodium Chloride (Vancocin) 200 mls @ 133 mls/hr IVPB Q12H [facility] Stop: 11/22/16 03:31 Last Admin: 11/21/16 04:00 Dose: 133 mls/hr Gentamicin Sulfate 80 mg/ (Sodium Chloride) 102 mls @ 100 mls/hr IVPB Q8H [facility] Last Admin: 11/21/16 13:59 Dose: 100 mls/hr Oxycodone/Acetaminophen (Percocet 5/325 Mg Tab) 1 tab PO Q4H PRN PRN Reason: Pain, moderate (4-7) Stop: 11/24/16 21:07 Pantoprazole Sodium (Protonix Inj) 40 mg IVP DAILY [facility] Last Admin: 11/21/16 10:43 Dose: 40 mg Saccharomyces Boulardii (Florastor) 250 mg PO BID [facility] Last Admin: 11/21/16 11:04 Dose: Not Given Tramadol HCl (Ultram) 50 mg PO TID PRN PRN Reason: Pain, moderate (4-7) Last Admin: 11/19/16 00:10 Dose: 50 mg - Labs Labs: 11/21/16 03:40 11/21/16 03:40 PT 13.8 SECONDS (9.7-12.2) H 11/19/16 11:56 INR 1.2 11/19/16 11:56 APTT 36 SECONDS (21-34) H 11/19/16 11:56 - Constitutional Appears: Non-toxic, No Acute Distress - Head Exam Head Exam: NORMAL INSPECTION - Eye Exam Eye Exam: EOMI - ENT Exam ENT Exam: Mucous Membranes Moist - Respiratory Exam Respiratory Exam: Chest Wall Tenderness, NORMAL BREATHING PATTERN. absent: Rales, Rhonchi, Wheezes - Cardiovascular Exam Cardiovascular Exam: REGULAR RHYTHM, +S1, +S2. absent: Gallop, Rubs, Murmur - GI/Abdominal Exam GI & Abdominal Exam: Soft, Normal Bowel Sounds. absent: Firm, Guarding, Tenderness - Exam Exam: Scrotal Swelling (gauze is bloody) - Extremities Exam Extremities Exam: absent: Pedal Edema - Neurological Exam Neurological Exam: Alert, Oriented x3 - Psychiatric Exam Psychiatric exam: Normal Affect, Normal Mood - Skin Skin Exam: Normal Color, Warm Assessment and Plan - Assessment and Plan (Free Text) Assessment: Left scrotal wall cellulitis - S/P packing change and irrigation of all 3 scrotal and perineal wounds and removal of rivera cath in OR POD #0 - S/P ID of the left scrotal sac and packing of the wound POD #2 - Rivera in place draining light yellow clear urine, good urine output - Wound culture 11/16 - prelim -> gram positive cocci - Strep. anguinosus (only resistant to erythromycin) - F/U tissue and wound culture from 11/19 in surgery - with extension to the left medial thigh and perineum with scrotal mass, indurated - possibly inflammatory but need to rule out malignancy - Pain to palpation with discharge from small, open sore with mild discharge - Zosyn 3.375 mg IVPB Q 8 hours (started 11/16) - Vanc 1gm IVPB Q12 hours (started 11/16) - Abd/Pelvis CT 11/17 - nonspecific lymphadenopathy: bilateral prominent inguinal adenopathy measuring up to 11 mm. lymph node along the left iliac artery measures 7mm in short axis. (1.7 cm fat containing umbilical hernia. Left L5 spondlolysis. mildly thick walled urinary bladder, hepatic steatosis, 13 mm hypodense lesion within the left lower pole kidney, possibly cyst, further eval with renal ultrasound suggested) - Testicular US 11/16 - Ill-defined extra testicular heterogeneous, hyperechoic, and hypervascular left scrotal mass appears solid. Scrotal wall thickening. Finding corresponds with palpable abnormality. Malignant neoplasm must be excluded. Abscess is considered less likely. Recommend urologic consultation. - Blood culture 11/16 - negative for 48 hours - urine culture 11/16 - negative - UA 11/16 - within normal limits - Florastor 250mg PO BID - Afebrile, but with leukocytosis - Tylenol PRN, Ultram 50mg TID prn pain - Urology consult - Dr. Li - help appreciated - ID consulted - Dr. Burrell - help appreciated - testicular tumor markers: (tumor ruled out based on marker and CT) - AFP - 3.0 wnl - BHcG - <2.39 wnl - LDH - 301 - RPR, hepatitis, hiv - negative Chest Pain PREM neg x1 F/U CTA GERD Protonix 40mg IVP daily Maalox 30ml PO daily Leukocytosis - WBC 10.1 ( Trend: 10.5, 12.4,17.5 15.3, 16.5 no bandemia) - Afebrile, denies f/c - Wound culture 11/16 - prelim -> gram positive cocci - Strep. anguinosus (only resistant to erythromycin) - Zosyn 3.375 mg IVPB Q 8 hours (started 11/16) - Vanc 1gm IVPB Q12 hours (started 11/16) - Vanc trough 6.6 (4/5 AM) - f/u am labs Kidney Lesion Incidental finding - bengin. Pt notified about finding Renal Ultrasound for further evaluation - septated 1.6 cm cyst lower pole kidney CT: 13 mm hypodense lesion within the left lower pole kidney, possibly cyst -> benign, pt informed of finding. Can follow up outpatient PPX - Lovenox 40mc SC daily - Pepcid 20 mg PO BID - Patient is ambulating, SCDs - Regular diet <Osman Atkinson - Last Filed: 12/29/16 15:35> Objective - Vital Signs/Intake and Output Vital Signs (last 24 hours): Temp Pulse Resp BP Pulse Ox 98.4 F 86 20 119/80 99 11/24/16 08:15 11/24/16 08:52 11/24/16 08:15 11/24/16 08:15 11/24/16 08:15 - Labs Labs: 11/24/16 07:33 11/24/16 07:33 PT 13.8 SECONDS (9.7-12.2) H 11/19/16 11:56 INR 1.2 11/19/16 11:56 APTT 36 SECONDS (21-34) H 11/19/16 11:56 Attending/Attestation - Attestation I have personally seen and examined this patient.: Yes I have fully participated in the care of the patient.: Yes I have reviewed all pertinent clinical information, including history, physical exam and plan: Yes Notes (Text): Patient seen and examined with the resident. Agree with the resident's evaluation, assessment and plan. Left scrotal wall cellulitis
[2016-11-21 17:21] VITALS: RESP 20
--- NOTE | 2016-11-21 22:24 | CT ---
EXAM: CT Angiography Chest With Intravenous Contrast CLINICAL HISTORY: 41 years old, male; Signs and symptoms; Shortness of breath; Additional info: Rule out pe TECHNIQUE: Axial computed tomographic angiography images of the chest with intravenous contrast using pulmonary embolism protocol. This CT exam was performed using one or more of the following dose reduction techniques: automated exposure control, adjustment of the mA and/or kV according to patient size, and/or use of iterative reconstruction technique. MIP reconstructed images were created and reviewed. Coronal and sagittal reformatted images were created and reviewed. CONTRAST: 100 mL of [id number] administered intravenously. COMPARISON: No relevant prior studies available. FINDINGS: Pulmonary arteries: No filling defect within the main, proximal or segmental pulmonary arteries. Aorta: No thoracic aortic aneurysm. Lungs: No mass. No consolidation. Trace bibasilar atelectasis Pleural spaces: No significant effusion. No pneumothorax. Heart: No cardiomegaly. No significant pericardial effusion. No evidence of right heart dysfunction. Bones: No acute fracture. Lymph nodes: No pathologically enlarged lymph nodes. IMPRESSION: No pulmonary embolism. Trace bibasilar atelectasis.
[2016-11-22] MEDS: Vancomycin 1 gm/NS 200 ml 200 ML IVPB SCH (02:42)
[2016-11-22] MEDS: Piperacillin/Tazobact 3.375 GM in Sodium Chloride 100 ML IVPB SCH ×4 (04:57→22:51)
[2016-11-22 07:27] LABS: BASO % 0.6 % (0.0-2.0); EOS # 0.4 K/uL (0.0-0.7); EOS % 4.7 % (0.0-4.0); HEMATOCRIT 34.1 % (35.0-51.0); LYMPH # 1.4 K/uL (1.0-4.3); LYMPH % 18.9 % (20.0-40.0); MEAN CELL VOLUME 89.6 fL (80.0-94.0); MEAN CORPUSCULAR HEMOGLOBIN 29.6 pg (27.0-31.0); MEAN PLATELET VOLUME 7.7 fL (7.2-11.7); MONO # 1.1 K/uL (0.0-0.8); MONO % 15.1 % (0.0-10.0); RED CELL DISTRIBUTION WIDTH 13.3 % (11.5-14.5); WHITE BLOOD COUNT 7.6 K/uL (4.8-10.8)
[2016-11-22 07:36] LABS: CHLORIDE 97 mmol/L (98-107)
[2016-11-22 07:37] LABS: POTASSIUM 4.1 mmol/L (3.6-5.2); SODIUM 144 mmol/L (132-148)
[2016-11-22 07:39] LABS: BILIRUBIN,TOTAL 0.5 mg/dL (0.2-1.3); CARBON DIOXIDE 30 mmol/L (22-30); GFR AFRICAN-AMERICAN > 60
[2016-11-22 07:40] LABS: ALB/GLOB RATIO 0.9 (1.0-2.1); ALKALINE PHOSPHATASE 64 U/L (38-126); ALT/SGPT 32 U/L (21-72); AST/SGOT 25 U/L (17-59); BLOOD UREA NITROGEN 9 mg/dL (9-20); CALCIUM 7.7 mg/dl (8.6-10.4); GLUCOSE,RANDOM 95 mg/dL (75-110); TOTAL PROTEIN 7.1 g/dL (6.3-8.3)
[2016-11-22] MEDS: Saccharomyces Boulardi 250 mg Cap PO SCH ×2 (09:22→18:03)
[2016-11-22] MEDS: Alum-Mag Hydrox-Simethicone Susp (30 mL) PO SCH (09:22)
[2016-11-22] MEDS: Enoxaparin 40 mg Syringe SC SCH (09:22)
--- NOTE | 2016-11-22 09:38 | CP.PCM.PN ---
Subjective - Date & Time of Evaluation Date of Evaluation: 11/22/16 Time of Evaluation: 06:45 - Subjective Subjective: Urology Dr. Li Pt S&E @bedside. NAOE. per nursing and pt, scrotal support soaked and new one applied. dressings changed PRN. pt has BM overnight and ~2cm of packing fell out. Pt reports subjective F/C. denies N/V. no problems urinating. Objective - Vital Signs/Intake and Output Vital Signs (last 24 hours): Temp Pulse Resp BP Pulse Ox 98.1 F 87 20 142/92 H 99 11/22/16 08:39 11/22/16 08:39 11/22/16 08:39 11/22/16 08:39 11/22/16 08:39 Intake and Output: 11/22/16 11/22/16 06:59 18:59 Intake Total 640 Output Total 1000 500 Balance -1000 140 - Medications Medications: Current Medications Acetaminophen (Tylenol 325mg Tab) 650 mg PO Q6 PRN PRN Reason: Pain, Mild (1-3) Last Admin: 11/22/16 00:57 Dose: 650 mg Al Hydrox/Mg Hydrox/Simethicone (Maalox Plus 30 Ml) 30 ml PO DAILY [facility] Last Admin: 11/22/16 09:22 Dose: 30 ml Docusate Sodium (Colace) 100 mg PO DAILY [facility] Last Admin: 11/22/16 09:22 Dose: 100 mg Enoxaparin Sodium (Lovenox) 40 mg SC DAILY [facility] Last Admin: 11/22/16 09:22 Dose: 40 mg Piperacillin Sod/Tazobactam (Sod 3.375 gm/ Sodium Chloride) 100 mls @ 200 mls/ hr IVPB Q6H [facility] Last Admin: 11/22/16 04:57 Dose: 200 mls/hr Gentamicin Sulfate 80 mg/ (Sodium Chloride) 102 mls @ 100 mls/hr IVPB Q8H [facility] Last Admin: 11/22/16 05:41 Dose: 100 mls/hr Vancomycin HCl 1,000 mg/ (Sodium Chloride) 250 mls @ 166.6 mls/hr IVPB Q12H [facility] Oxycodone/Acetaminophen (Percocet 5/325 Mg Tab) 1 tab PO Q4H PRN PRN Reason: Pain, moderate (4-7) Stop: 11/24/16 21:07 Pantoprazole Sodium (Protonix Inj) 40 mg IVP DAILY [facility] Last Admin: 11/22/16 09:22 Dose: 40 mg Saccharomyces Boulardii (Florastor) 250 mg PO BID [facility] Last Admin: 11/22/16 09:22 Dose: 250 mg Tramadol HCl (Ultram) 50 mg PO TID PRN PRN Reason: Pain, moderate (4-7) Last Admin: 11/19/16 00:10 Dose: 50 mg - Labs Labs: 11/22/16 07:09 11/22/16 07:09 PT 13.8 SECONDS (9.7-12.2) H 11/19/16 11:56 INR 1.2 11/19/16 11:56 APTT 36 SECONDS (21-34) H 11/19/16 11:56 - Constitutional Appears: Non-toxic, No Acute Distress - Head Exam Head Exam: NORMAL INSPECTION - Eye Exam Eye Exam: Normal appearance - ENT Exam ENT Exam: Mucous Membranes Moist - Respiratory Exam Respiratory Exam: NORMAL BREATHING PATTERN. absent: Accessory Muscle Use, Respiratory Distress - GI/Abdominal Exam GI & Abdominal Exam: Soft. absent: Distended, Tenderness - Exam Additional comments: scrotal swelling packing in place dressing strained support stained - Neurological Exam Neurological Exam: Alert, Awake, Oriented x3 - Psychiatric Exam Psychiatric exam: Normal Affect, Normal Mood - Skin Skin Exam: Dry, Intact, Normal Color, Warm Assessment and Plan - Assessment and Plan (Free Text) Assessment: 41 y/o M w/ scrotal and perineal abscess s/p drainage POD #1 s/p paking change and wash out - cont pain management - dressing changes PRN - cont Abx Further recs per Dr. Guillermo Zarate DO PGY1
--- NOTE | 2016-11-22 13:53 | CP.PCM.PN ---
<Ella Roa H - Last Filed: 11/22/16 13:50> Subjective - Date & Time of Evaluation Date of Evaluation: 11/22/16 Time of Evaluation: 07:50 - Subjective Subjective: PGY2 Medicine Note - Dr. Atkinson's service: Patient seen and examined at bedside this AM. Patient reports continued acid reflux. Patient denies fever, chills, SOB, abdominal pain, nausea, vomiting, diarrhea, constipation, dysuria. Patient had rivera taken out yesterday. Patient is urinating on his own. Patient reports 4-5/10 pain in scrotum, which is significantly decreased per patient. Objective - Vital Signs/Intake and Output Vital Signs (last 24 hours): Temp Pulse Resp BP Pulse Ox 98.1 F 87 20 142/92 H 99 11/22/16 08:39 11/22/16 08:39 11/22/16 08:39 11/22/16 08:39 11/22/16 08:39 Intake and Output: 11/22/16 11/22/16 06:59 18:59 Intake Total 1280 Output Total 1000 900 Balance -1000 380 - Medications Medications: Current Medications Acetaminophen (Tylenol 325mg Tab) 650 mg PO Q6 PRN PRN Reason: Pain, Mild (1-3) Last Admin: 11/22/16 00:57 Dose: 650 mg Al Hydrox/Mg Hydrox/Simethicone (Maalox Plus 30 Ml) 30 ml PO DAILY [facility] Last Admin: 11/22/16 09:22 Dose: 30 ml Docusate Sodium (Colace) 100 mg PO DAILY [facility] Last Admin: 11/22/16 09:22 Dose: 100 mg Enoxaparin Sodium (Lovenox) 40 mg SC DAILY [facility] Last Admin: 11/22/16 09:22 Dose: 40 mg Piperacillin Sod/Tazobactam (Sod 3.375 gm/ Sodium Chloride) 100 mls @ 200 mls/ hr IVPB Q6H [facility] Last Admin: 11/22/16 11:34 Dose: 200 mls/hr Gentamicin Sulfate 80 mg/ (Sodium Chloride) 102 mls @ 100 mls/hr IVPB Q8H [facility] Last Admin: 11/22/16 05:41 Dose: 100 mls/hr Vancomycin HCl 1,000 mg/ (Sodium Chloride) 250 mls @ 166.6 mls/hr IVPB Q12H [facility] Oxycodone/Acetaminophen (Percocet 5/325 Mg Tab) 1 tab PO Q4H PRN PRN Reason: Pain, moderate (4-7) Stop: 11/24/16 21:07 Pantoprazole Sodium (Protonix Inj) 40 mg IVP DAILY [facility] Last Admin: 11/22/16 09:22 Dose: 40 mg Saccharomyces Boulardii (Florastor) 250 mg PO BID [facility] Last Admin: 11/22/16 09:22 Dose: 250 mg Tramadol HCl (Ultram) 50 mg PO TID PRN PRN Reason: Pain, moderate (4-7) Last Admin: 11/19/16 00:10 Dose: 50 mg - Labs Labs: 11/22/16 07:09 11/22/16 07:09 PT 13.8 SECONDS (9.7-12.2) H 11/19/16 11:56 INR 1.2 11/19/16 11:56 APTT 36 SECONDS (21-34) H 11/19/16 11:56 - Constitutional Appears: Non-toxic, No Acute Distress - Head Exam Head Exam: NORMAL INSPECTION - Eye Exam Eye Exam: EOMI - ENT Exam ENT Exam: Mucous Membranes Moist - Respiratory Exam Respiratory Exam: Clear to Ausculation Bilateral, NORMAL BREATHING PATTERN. absent: Rales, Rhonchi, Wheezes - Cardiovascular Exam Cardiovascular Exam: REGULAR RHYTHM, +S1, +S2. absent: Gallop, Rubs, Murmur - GI/Abdominal Exam GI & Abdominal Exam: Soft, Normal Bowel Sounds. absent: Distended, Firm, Guarding, Tenderness - Extremities Exam Extremities Exam: absent: Pedal Edema - Neurological Exam Neurological Exam: Alert, Oriented x3 - Psychiatric Exam Psychiatric exam: Normal Affect, Normal Mood - Skin Skin Exam: Normal Color, Warm Assessment and Plan - Assessment and Plan (Free Text) Assessment: Left scrotal wall cellulitis - S/P packing change and irrigation of all 3 scrotal and perineal wounds and removal of rivera cath in OR POD #1 - S/P ID of the left scrotal sac and packing of the wound POD #3 - Rivera in place draining light yellow clear urine, good urine output - Wound culture 11/16 - prelim -> gram positive cocci - Strep. anguinosus (only resistant to erythromycin) - F/U tissue and wound culture from 11/19 in surgery - with extension to the left medial thigh and perineum with scrotal mass, indurated - possibly inflammatory but need to rule out malignancy - Pain to palpation with discharge from small, open sore with mild discharge - Zosyn 3.375 mg IVPB Q 8 hours (started 11/16) - Vanc 1gm IVPB Q12 hours (started 11/16) - gentamicin 80mg IVPB Q8H (started 11/20/16) - monitor creatinine - Abd/Pelvis CT 11/17 - nonspecific lymphadenopathy: bilateral prominent inguinal adenopathy measuring up to 11 mm. lymph node along the left iliac artery measures 7mm in short axis. (1.7 cm fat containing umbilical hernia. Left L5 spondlolysis. mildly thick walled urinary bladder, hepatic steatosis, 13 mm hypodense lesion within the left lower pole kidney, possibly cyst, further eval with renal ultrasound suggested) - Testicular US 11/16 - Ill-defined extra testicular heterogeneous, hyperechoic, and hypervascular left scrotal mass appears solid. Scrotal wall thickening. Finding corresponds with palpable abnormality. Malignant neoplasm must be excluded. Abscess is considered less likely. Recommend urologic consultation. - Blood culture 11/16 - negative for 48 hours - urine culture 11/16 - negative - UA 11/16 - within normal limits - Florastor 250mg PO BID - Afebrile, but with leukocytosis - Tylenol PRN, Ultram 50mg TID prn pain - Urology consult - Dr. Li - help appreciated - ID consulted - Dr. Burrell - help appreciated - testicular tumor markers: (tumor ruled out based on marker and CT) - AFP - 3.0 wnl - BHcG - <2.39 wnl - LDH - 301 - RPR, hepatitis, hiv - negative Chest Pain PREM neg x1 CTA negative F/U ECHO GERD Protonix 40mg IVP daily Maalox 30ml PO daily Leukocytosis - WBC 7.6 ( Trend: 7.6, 10.5, 12.4,17.5 15.3, 16.5 no bandemia) - Afebrile, denies f/c - Wound culture 11/16 - prelim -> gram positive cocci - Strep. anguinosus (only resistant to erythromycin) - Zosyn 3.375 mg IVPB Q 8 hours (started 11/16) - Vanc 1gm IVPB Q12 hours (started 11/16) - Vanc trough 6.6 (4/5 AM) - f/u am labs Kidney Lesion Incidental finding - bengin. Pt notified about finding Renal Ultrasound for further evaluation - septated 1.6 cm cyst lower pole kidney CT: 13 mm hypodense lesion within the left lower pole kidney, possibly cyst -> benign, pt informed of finding. Can follow up outpatient PPX - Lovenox 40mc SC daily - Pepcid 20 mg PO BID - Patient is ambulating, SCDs - Regular diet <[place],Osman - Last Filed: 12/29/16 16:11> Objective - Vital Signs/Intake and Output Vital Signs (last 24 hours): Temp Pulse Resp BP Pulse Ox 98.4 F 86 20 119/80 99 11/24/16 08:15 11/24/16 08:52 11/24/16 08:15 11/24/16 08:15 11/24/16 08:15 - Labs Labs: 11/24/16 07:33 11/24/16 07:33 PT 13.8 SECONDS (9.7-12.2) H 11/19/16 11:56 INR 1.2 11/19/16 11:56 APTT 36 SECONDS (21-34) H 11/19/16 11:56 Attending/Attestation - Attestation I have personally seen and examined this patient.: Yes I have fully participated in the care of the patient.: Yes I have reviewed all pertinent clinical information, including history, physical exam and plan: Yes Notes (Text): Patient seen and examined with the resident. Agree with the resident's evaluation, assessment and plan. Left scrotal wall cellulitis - S/P packing change and irrigation of all 3 scrotal and perineal wounds and removal of rivera cath in OR POD #1 - S/P ID of the left scrotal sac and packing of the wound POD #3 - Rivera in place draining light yellow clear urine, good urine output - Wound culture 11/16 - prelim -> gram positive cocci - Strep. anguinosus (only resistant to erythromycin) - F/U tissue and wound culture from 11/19 in surgery - with extension to the left medial thigh and perineum with scrotal mass, indurated - possibly inflammatory but need to rule out malignancy - Pain to palpation with discharge from small, open sore with mild discharge - Zosyn 3.375 mg IVPB Q 8 hours (started 11/16) - Vanc 1gm IVPB Q12 hours (started 11/16) - gentamicin 80mg IVPB Q8H (started 11/20/16) - monitor creatinine
--- NOTE | 2016-11-22 16:19 | CARD ---
APPROVED REPORT EXAM: Two-dimensional and M-mode echocardiogram with Doppler and color Doppler. Other Information Quality : Technically LimitedRhythm : NSR INDICATION R/O ENDOCARDITIS M-Mode DIMENSIONS RVDd1.20 (2.1-3.2cm)Left Atrium (MM)3.02 (2.5-4.0cm) IVSd0.59 (0.7-1.1cm)Aortic Root3.32 (2.2-3.7cm) LVDd4.16 (4.0-5.6cm)Aortic Cusp Exc.1.92 (1.5-2.0cm) PWd0.78 (0.7-1.1cm)FS (%) 39 % LVDs2.54 (2.0-3.8cm)LVEF (%)70 (>50%) Aortic Valve AoV Peak Sguftenm189.5cm/Kailyn Peak GR.8mmHg Mitral Valve MV E Xakoxwan75.4cm/sMV A Pbnnruhp66.3cm/sE/A ratio1.0 TDI E/Lateral E'0.0E/Medial E'0.0 Tricuspid Valve TR Peak Vcretgve991xg/sTR Peak Gr.67urOcCVHB28gdKr <Conclusion> tds. poor window. la,lv & ra rv size appears normal. normal lv wall motion,thickness,systolic & diastolic funciton with lvef of 60-65%. mitral & tv appears normal. aortic & pv not well seen. rt sided structures not well seen. no pericardial effusion. clinical correlation is adv.
[2016-11-23] MEDS: Oxycodone/Acetaminophen 5/325 mg Tab PO PRN ×2 (04:17→14:40)
[2016-11-23] MEDS: Piperacillin/Tazobact 3.375 GM in Sodium Chloride 100 ML IVPB SCH ×3 (05:20→17:18)
[2016-11-23 07:23] LABS: BASO % 0.4 % (0.0-2.0); EOS # 0.3 K/uL (0.0-0.7); EOS % 5.5 % (0.0-4.0); HEMATOCRIT 32.4 % (35.0-51.0); LYMPH # 1.4 K/uL (1.0-4.3); LYMPH % 23.9 % (20.0-40.0); MEAN CELL VOLUME 89.8 fL (80.0-94.0); MEAN CORPUSCULAR HEMOGLOBIN 28.9 pg (27.0-31.0); MEAN CORPUSCULAR HGB CONC 32.2 g/dL (33.0-37.0); MEAN PLATELET VOLUME 7.8 fL (7.2-11.7); MONO # 0.8 K/uL (0.0-0.8); MONO % 13.6 % (0.0-10.0); RED CELL DISTRIBUTION WIDTH 13.8 % (11.5-14.5)
[2016-11-23 07:29] LABS: CHLORIDE 99 mmol/L (98-107); POTASSIUM 3.6 mmol/L (3.6-5.2); SODIUM 140 mmol/L (132-148)
[2016-11-23 07:31] LABS: GFR AFRICAN-AMERICAN > 60
[2016-11-23 07:32] LABS: ALKALINE PHOSPHATASE 51 U/L (38-126); AST/SGOT 27 U/L (17-59); BILIRUBIN,TOTAL 0.3 mg/dL (0.2-1.3); BLOOD UREA NITROGEN 5 mg/dL (9-20); CARBON DIOXIDE 27 mmol/L (22-30); GLUCOSE,RANDOM 93 mg/dL (75-110); TOTAL PROTEIN 7.1 g/dL (6.3-8.3)
[2016-11-23 07:33] LABS: ALT/SGPT 27 U/L (21-72)
[2016-11-23 07:38] LABS: ALB/GLOB RATIO 0.8 (1.0-2.1)
--- NOTE | 2016-11-23 08:49 | CP.PCM.PN ---
Subjective - Date & Time of Evaluation Date of Evaluation: 11/23/16 Time of Evaluation: 06:50 - Subjective Subjective: Urology Dr. Li Pt S&E @bedside. NAEO. no issues urinating. (+)BM. denies F/C, N/V. tolerating diet. Objective - Vital Signs/Intake and Output Vital Signs (last 24 hours): Temp Pulse Resp BP Pulse Ox 98.6 F 88 20 126/81 98 11/23/16 00:00 11/23/16 00:00 11/23/16 00:00 11/23/16 00:00 11/23/16 00:00 Intake and Output: 11/23/16 11/23/16 06:59 18:59 Intake Total 800 650 Output Total 600 850 Balance 200 -200 - Medications Medications: Current Medications Acetaminophen (Tylenol 325mg Tab) 650 mg PO Q6 PRN PRN Reason: Pain, Mild (1-3) Last Admin: 11/22/16 00:57 Dose: 650 mg Al Hydrox/Mg Hydrox/Simethicone (Maalox Plus 30 Ml) 30 ml PO DAILY [facility] Last Admin: 11/22/16 09:22 Dose: 30 ml Docusate Sodium (Colace) 100 mg PO DAILY [facility] Last Admin: 11/22/16 09:22 Dose: 100 mg Enoxaparin Sodium (Lovenox) 40 mg SC DAILY [facility] Last Admin: 11/22/16 09:22 Dose: 40 mg Piperacillin Sod/Tazobactam (Sod 3.375 gm/ Sodium Chloride) 100 mls @ 200 mls/ hr IVPB Q6H [facility] Last Admin: 11/23/16 05:20 Dose: 200 mls/hr Gentamicin Sulfate 80 mg/ (Sodium Chloride) 102 mls @ 100 mls/hr IVPB Q8H [facility] Last Admin: 11/23/16 06:04 Dose: 100 mls/hr Vancomycin HCl 1,000 mg/ (Sodium Chloride) 250 mls @ 166.6 mls/hr IVPB Q12H [facility] Last Admin: 11/23/16 02:59 Dose: 166.6 mls/hr Oxycodone/Acetaminophen (Percocet 5/325 Mg Tab) 1 tab PO Q4H PRN PRN Reason: Pain, moderate (4-7) Stop: 11/24/16 21:07 Last Admin: 11/23/16 04:17 Dose: 1 tab Pantoprazole Sodium (Protonix Inj) 40 mg IVP DAILY [facility] Last Admin: 11/22/16 09:22 Dose: 40 mg Saccharomyces Boulardii (Florastor) 250 mg PO BID [facility] Last Admin: 11/22/16 18:03 Dose: 250 mg Tramadol HCl (Ultram) 50 mg PO TID PRN PRN Reason: Pain, moderate (4-7) Last Admin: 11/19/16 00:10 Dose: 50 mg - Labs Labs: 11/23/16 07:10 11/23/16 07:10 PT 13.8 SECONDS (9.7-12.2) H 11/19/16 11:56 INR 1.2 11/19/16 11:56 APTT 36 SECONDS (21-34) H 11/19/16 11:56 - Constitutional Appears: Non-toxic, No Acute Distress - Head Exam Head Exam: NORMAL INSPECTION - Eye Exam Eye Exam: Normal appearance - ENT Exam ENT Exam: Mucous Membranes Moist - Respiratory Exam Respiratory Exam: NORMAL BREATHING PATTERN. absent: Accessory Muscle Use, Respiratory Distress - GI/Abdominal Exam GI & Abdominal Exam: Soft. absent: Distended, Tenderness - Exam Additional comments: scrotal support in place dressings w/ serosang staining packing in place - Neurological Exam Neurological Exam: Alert, Awake, Oriented x3 - Psychiatric Exam Psychiatric exam: Normal Affect, Normal Mood - Skin Skin Exam: Dry, Normal Color, Warm Assessment and Plan - Assessment and Plan (Free Text) Assessment: 41 y/o M w/ scrotal and perineal abscess s/p drainage POD #2 s/p packing change and wash out - cont pain management - dressing changes PRN - cont Abx per ID Further recs per Dr. Guillermo Zarate DO PGY1 General Surgery Resident
[2016-11-23] MEDS: Saccharomyces Boulardi 250 mg Cap PO SCH ×2 (10:22→17:18)
[2016-11-23] MEDS: Enoxaparin 40 mg Syringe SC SCH (10:22)
[2016-11-23] MEDS: Alum-Mag Hydrox-Simethicone Susp (30 mL) PO SCH (10:23)
--- NOTE | 2016-11-23 15:28 | CP.PCM.PN ---
<Thai Yip - Last Filed: 11/23/16 15:35> Subjective - Date & Time of Evaluation Date of Evaluation: 11/23/16 Time of Evaluation: 08:17 - Subjective Subjective: Pt seen and examined. Pt reports that he is feeling moderate pain in his scrotum and salomón-scrotal region. Pt denies fever, chills, chest pain, shortness of breath, nausea, and vomiting. Objective - Vital Signs/Intake and Output Vital Signs (last 24 hours): Temp Pulse Resp BP Pulse Ox 98.0 F 82 20 135/83 100 11/23/16 08:00 11/23/16 08:00 11/23/16 08:00 11/23/16 08:00 11/23/16 08:00 Intake and Output: 11/23/16 11/23/16 06:59 18:59 Intake Total 800 650 Output Total 600 850 Balance 200 -200 - Medications Medications: Current Medications Acetaminophen (Tylenol 325mg Tab) 650 mg PO Q6 PRN PRN Reason: Pain, Mild (1-3) Last Admin: 11/22/16 00:57 Dose: 650 mg Al Hydrox/Mg Hydrox/Simethicone (Maalox Plus 30 Ml) 30 ml PO DAILY [facility] Last Admin: 11/23/16 10:23 Dose: Not Given Docusate Sodium (Colace) 100 mg PO DAILY [facility] Last Admin: 11/23/16 10:22 Dose: 100 mg Enoxaparin Sodium (Lovenox) 40 mg SC DAILY [facility] Last Admin: 11/23/16 10:22 Dose: 40 mg Piperacillin Sod/Tazobactam (Sod 3.375 gm/ Sodium Chloride) 100 mls @ 200 mls/ hr IVPB Q6H [facility] Last Admin: 11/23/16 14:42 Dose: 200 mls/hr Gentamicin Sulfate 80 mg/ (Sodium Chloride) 102 mls @ 100 mls/hr IVPB Q8H [facility] Last Admin: 11/23/16 14:43 Dose: 100 mls/hr Vancomycin HCl 1,000 mg/ (Sodium Chloride) 250 mls @ 166.6 mls/hr IVPB Q12H [facility] Last Admin: 11/23/16 14:44 Dose: 166.6 mls/hr Oxycodone/Acetaminophen (Percocet 5/325 Mg Tab) 1 tab PO Q4H PRN PRN Reason: Pain, moderate (4-7) Stop: 11/24/16 21:07 Last Admin: 11/23/16 14:40 Dose: 1 tab Pantoprazole Sodium (Protonix Inj) 40 mg IVP DAILY [facility] Last Admin: 11/23/16 10:22 Dose: 40 mg Saccharomyces Boulardii (Florastor) 250 mg PO BID [facility] Last Admin: 11/23/16 10:22 Dose: 250 mg Tramadol HCl (Ultram) 50 mg PO TID PRN PRN Reason: Pain, moderate (4-7) Last Admin: 11/19/16 00:10 Dose: 50 mg - Labs Labs: 11/23/16 07:10 11/23/16 07:10 PT 13.8 SECONDS (9.7-12.2) H 11/19/16 11:56 INR 1.2 11/19/16 11:56 APTT 36 SECONDS (21-34) H 11/19/16 11:56 - Constitutional Appears: No Acute Distress - Head Exam Head Exam: ATRAUMATIC, NORMOCEPHALIC - Eye Exam Eye Exam: EOMI, PERRL - ENT Exam ENT Exam: Mucous Membranes Moist. absent: Mucous Membranes Dry - Respiratory Exam Respiratory Exam: Clear to Ausculation Bilateral. absent: Rales, Rhonchi, Wheezes - Cardiovascular Exam Cardiovascular Exam: +S1, +S2. absent: Gallop, Rubs - GI/Abdominal Exam GI & Abdominal Exam: Soft, Normal Bowel Sounds. absent: Distended, Guarding, Tenderness - Exam Exam: Scrotal Swelling (Draining salomón scrotal and scrotal ulcers) External exam: Erythema - Extremities Exam Extremities Exam: Full ROM. absent: Pedal Edema - Neurological Exam Neurological Exam: Alert, Awake, Oriented x3 - Psychiatric Exam Psychiatric exam: Normal Affect, Normal Mood - Skin Skin Exam: Warm Assessment and Plan - Assessment and Plan (Free Text) Assessment: Left Scrotal Wall Cellulitis: Packing removed from all 3 wounds and thoroughly irrigated as per urology Pt instructed on how to irrigate and dress wounds at home Follow up with urology and ID regarding discharge plan Pt will need to be discharged on oral antibiotics for at least another 2 weeks Testicular tumor markers negative Abd/Pelvis CT 11/17 - nonspecific lymphadenopathy: bilateral prominent inguinal adenopathy measuring up to 11 mm; lymph node along the left iliac artery measures 7mm in short axis. (1.7 cm fat containing umbilical hernia. Left L5 spondylolysis. mildly thick walled urinary bladder, hepatic steatosis, 13 mm hypodense lesion within the left lower pole kidney, possibly cyst, further eval with renal ultrasound suggested - please see full report) Pt afebrile, nontachycardic Leukocytosis resolved RPR, HIV negative Continue Gentamicin 80 mg IV q8h, vancomycin 1 gm IV q12h, Zosyn 3.375 gm IV q6h as per ID Florastor 250 mg po bid Percocet 5/325 mg 1 tab po q4h prn for moderate pain Ultram 50 mg po tid prn for moderate pain Tylenol 650 mg po q6h prn for mild pain GERD: Maalox 30 ml po qd Prophylactic Measures: GI: Protonix 40 mg IV qd DVT: Lovenox 40 mg sc qd, SCDs Colace 100 mg po qd for constipation <Obey Vences - Last Filed: 11/23/16 16:53> Objective - Vital Signs/Intake and Output Vital Signs (last 24 hours): Temp Pulse Resp BP Pulse Ox 98.5 F 92 H 20 134/82 98 11/23/16 15:15 11/23/16 15:15 11/23/16 15:15 11/23/16 15:15 11/23/16 15:15 Intake and Output: 11/23/16 11/23/16 06:59 18:59 Intake Total 800 650 Output Total 600 850 Balance 200 -200 - Medications Medications: Current Medications Acetaminophen (Tylenol 325mg Tab) 650 mg PO Q6 PRN PRN Reason: Pain, Mild (1-3) Last Admin: 11/22/16 00:57 Dose: 650 mg Al Hydrox/Mg Hydrox/Simethicone (Maalox Plus 30 Ml) 30 ml PO DAILY [facility] Last Admin: 11/23/16 10:23 Dose: Not Given Docusate Sodium (Colace) 100 mg PO DAILY [facility] Last Admin: 11/23/16 10:22 Dose: 100 mg Enoxaparin Sodium (Lovenox) 40 mg SC DAILY [facility] Last Admin: 11/23/16 10:22 Dose: 40 mg Piperacillin Sod/Tazobactam (Sod 3.375 gm/ Sodium Chloride) 100 mls @ 200 mls/ hr IVPB Q6H [facility] Last Admin: 11/23/16 14:42 Dose: 200 mls/hr Gentamicin Sulfate 80 mg/ (Sodium Chloride) 102 mls @ 100 mls/hr IVPB Q8H [facility] Last Admin: 11/23/16 14:43 Dose: 100 mls/hr Vancomycin HCl 1,000 mg/ (Sodium Chloride) 250 mls @ 166.6 mls/hr IVPB Q12H [facility] Last Admin: 11/23/16 14:44 Dose: 166.6 mls/hr Oxycodone/Acetaminophen (Percocet 5/325 Mg Tab) 1 tab PO Q4H PRN PRN Reason: Pain, moderate (4-7) Stop: 11/24/16 21:07 Last Admin: 11/23/16 14:40 Dose: 1 tab Pantoprazole Sodium (Protonix Inj) 40 mg IVP DAILY [facility] Last Admin: 11/23/16 10:22 Dose: 40 mg Saccharomyces Boulardii (Florastor) 250 mg PO BID [facility] Last Admin: 11/23/16 10:22 Dose: 250 mg Tramadol HCl (Ultram) 50 mg PO TID PRN PRN Reason: Pain, moderate (4-7) Last Admin: 11/19/16 00:10 Dose: 50 mg - Labs Labs: 11/23/16 07:10 11/23/16 07:10 PT 13.8 SECONDS (9.7-12.2) H 11/19/16 11:56 INR 1.2 11/19/16 11:56 APTT 36 SECONDS (21-34) H 11/19/16 11:56 Attending/Attestation - Attestation I have personally seen and examined this patient.: Yes I have fully participated in the care of the patient.: Yes I have reviewed all pertinent clinical information, including history, physical exam and plan: Yes Notes (Text): 11/23/16 16:52 Patient was seen and examined at bedside with the resident Patient has no new complaints Change of dressing when necessary as per surgery. We will continue IV antibiotics as per recommendations of ID Discharge planning when cleared by surgery and ID.
--- NOTE | 2016-11-23 15:35 | PN ---
DATE: 11/23/2016 The patient was seen at the bedside and all 3 packing iodoform gauze material was removed from each o f the 3 wounds and the wounds were thoroughly irrigated with peroxide. Sterile 4 x 4 gauze dressings were applied to the wound surfaces, which were held in place using a large scrotal support. The pat ient tolerated the procedure well with at most 5 mL of blood loss. Plan for this patient and this wa s instructed to the patient at the bedside and demonstrated to the patient, how to irrigate the wound at home with peroxide half mixed with water at home and applying the gauze dressings and again to be held in place using a large scrotal support. This is to be done at least twice daily at home and as the wounds gradually heal and close, he can decrease to one time daily and then stop. The patient w ill also, as per Dr. Burrell, ID, go home probably on Augmentin 875 mg/125 mg p.o. b.i.d. for at leas t another 2 weeks. Markus Li MD cc: [phone] TT: 11/23/2016 15:34:10 Confirmation # [id number] Dictation # [id number]
[2016-11-24] MEDS: Piperacillin/Tazobact 3.375 GM in Sodium Chloride 100 ML IVPB SCH ×2 (00:17→04:48)
[2016-11-24] MEDS ORDERED: Oxymetazoline 0.05% Nasal Spray (30 ml) NS STA (00:25)
[2016-11-24 01:27] VITALS: O2SAT 99
[2016-11-24 07:51] LABS: BASO % 0.7 % (0.0-2.0); EOS # 0.3 K/uL (0.0-0.7); EOS % 5.7 % (0.0-4.0); HEMATOCRIT 33.7 % (35.0-51.0); LYMPH # 1.5 K/uL (1.0-4.3); LYMPH % 30.1 % (20.0-40.0); MEAN CELL VOLUME 89.8 fL (80.0-94.0); MEAN CORPUSCULAR HEMOGLOBIN 28.8 pg (27.0-31.0); MEAN CORPUSCULAR HGB CONC 32.1 g/dL (33.0-37.0); MEAN PLATELET VOLUME 7.7 fL (7.2-11.7); MONO # 0.6 K/uL (0.0-0.8); MONO % 11.8 % (0.0-10.0); RED CELL DISTRIBUTION WIDTH 13.9 % (11.5-14.5); WHITE BLOOD COUNT 5.1 K/uL (4.8-10.8)
[2016-11-24 08:16] VITALS: BP 119/80; PULSE 86; TEMP 98.4
[2016-11-24 08:22] LABS: CHLORIDE 98 mmol/L (98-107); POTASSIUM 4.1 mmol/L (3.6-5.2); SODIUM 140 mmol/L (132-148)
[2016-11-24 08:24] LABS: ALB/GLOB RATIO 0.9 (1.0-2.1); ALKALINE PHOSPHATASE 51 U/L (38-126); AST/SGOT 32 U/L (17-59); BILIRUBIN,TOTAL 0.4 mg/dL (0.2-1.3); BLOOD UREA NITROGEN 5 mg/dL (9-20); CARBON DIOXIDE 28 mmol/L (22-30); GFR AFRICAN-AMERICAN > 60; TOTAL PROTEIN 7.2 g/dL (6.3-8.3)
[2016-11-24 08:25] LABS: ALT/SGPT 27 U/L (21-72); CALCIUM 8.1 mg/dl (8.6-10.4); GLUCOSE,RANDOM 134 mg/dL (75-110); PHOSPHOROUS 3.7 mg/dL (2.5-4.5)
[2016-11-24] MEDS: Enoxaparin 40 mg Syringe SC SCH (09:49)
[2016-11-24] MEDS: Saccharomyces Boulardi 250 mg Cap PO SCH (09:50)
[2016-11-24] MEDS: Alum-Mag Hydrox-Simethicone Susp (30 mL) PO SCH (09:51)
--- NOTE | 2016-11-24 10:04 | CP.PCM.PN ---
Subjective - Date & Time of Evaluation Date of Evaluation: 11/24/16 Time of Evaluation: 06:45 - Subjective Subjective: Urology Dr. Li Pt S&E @bedside. NAEO. pain controlled. denies F/C, N/V. (+) BM/Flatus. cleared for discharge to home w/ PO abx. Objective - Vital Signs/Intake and Output Vital Signs (last 24 hours): Temp Pulse Resp BP Pulse Ox 98.4 F 86 20 119/80 99 11/24/16 08:15 11/24/16 08:52 11/24/16 08:15 11/24/16 08:15 11/24/16 08:15 Intake and Output: 11/24/16 11/24/16 06:59 18:59 Intake Total 1040 Output Total 600 Balance 440 - Medications Medications: Current Medications Acetaminophen (Tylenol 325mg Tab) 650 mg PO Q6 PRN PRN Reason: Pain, Mild (1-3) Last Admin: 11/22/16 00:57 Dose: 650 mg Al Hydrox/Mg Hydrox/Simethicone (Maalox Plus 30 Ml) 30 ml PO DAILY [facility] Last Admin: 11/24/16 09:51 Dose: 30 ml Docusate Sodium (Colace) 100 mg PO DAILY [facility] Last Admin: 11/24/16 09:50 Dose: 100 mg Enoxaparin Sodium (Lovenox) 40 mg SC DAILY [facility] Last Admin: 11/24/16 09:49 Dose: 40 mg Piperacillin Sod/Tazobactam (Sod 3.375 gm/ Sodium Chloride) 100 mls @ 200 mls/ hr IVPB Q6H [facility] Last Admin: 11/24/16 04:48 Dose: 200 mls/hr Gentamicin Sulfate 80 mg/ (Sodium Chloride) 102 mls @ 100 mls/hr IVPB Q8H [facility] Last Admin: 11/24/16 05:49 Dose: 100 mls/hr Vancomycin HCl 1,000 mg/ (Sodium Chloride) 250 mls @ 166.6 mls/hr IVPB Q12H [facility] Last Admin: 11/24/16 03:03 Dose: 166.6 mls/hr Oxycodone/Acetaminophen (Percocet 5/325 Mg Tab) 1 tab PO Q4H PRN PRN Reason: Pain, moderate (4-7) Stop: 11/24/16 21:07 Last Admin: 11/23/16 14:40 Dose: 1 tab Pantoprazole Sodium (Protonix Inj) 40 mg IVP DAILY [facility] Last Admin: 11/24/16 09:50 Dose: 40 mg Saccharomyces Boulardii (Florastor) 250 mg PO BID [facility] Last Admin: 11/24/16 09:50 Dose: 250 mg Tramadol HCl (Ultram) 50 mg PO TID PRN PRN Reason: Pain, moderate (4-7) Last Admin: 11/19/16 00:10 Dose: 50 mg - Labs Labs: 11/24/16 07:33 11/24/16 07:33 PT 13.8 SECONDS (9.7-12.2) H 11/19/16 11:56 INR 1.2 11/19/16 11:56 APTT 36 SECONDS (21-34) H 11/19/16 11:56 - Constitutional Appears: Non-toxic, No Acute Distress - Head Exam Head Exam: NORMAL INSPECTION - Eye Exam Eye Exam: Normal appearance - ENT Exam ENT Exam: Mucous Membranes Moist - Respiratory Exam Respiratory Exam: NORMAL BREATHING PATTERN. absent: Accessory Muscle Use, Respiratory Distress - GI/Abdominal Exam GI & Abdominal Exam: Soft. absent: Distended, Tenderness - Neurological Exam Neurological Exam: Alert, Awake, Oriented x3 - Psychiatric Exam Psychiatric exam: Normal Affect, Normal Mood - Skin Skin Exam: Dry, Normal Color, Warm
--- NOTE | 2016-11-24 10:57 | CP.PCM.DIS ---
<Jaymie Leyva - Last Filed: 11/24/16 11:05> Provider - Provider Date of Admission: 11/16/16 16:08 Attending physician: Osman Atkinson MD Primary care physician: None- refer to [facility] Consults: Urology- Mushtaq ID - Indra Time Spent in preparation of Discharge (in minutes): 60 Hospital Course - Lab Results Lab Results: Micro Results 11/19/16 06:00 Other: Please Indicate Gram Stain - Final 11/19/16 06:00 Other: Please Indicate Wound Culture - Final Coagulase Neg Staphylococcus 11/19/16 06:00 Other: Please Indicate Gram Stain - Final 11/19/16 06:00 Other: Please Indicate Tissue Culture - Final Coagulase Neg Staphylococcus 11/16/16 Unknown Scrotum Gram Stain - Final 11/16/16 Unknown Scrotum Wound Culture - Final Streptococcus anginosus group Most Recent Lab Values WBC 5.1 K/uL (4.8-10.8) 11/24/16 07:33 RBC 3.76 Mil/uL (4.40-5.90) L 11/24/16 07:33 Hgb 10.8 g/dL (12.0-18.0) L 11/24/16 07:33 Hct 33.7 % (35.0-51.0) L 11/24/16 07:33 MCV 89.8 fL (80.0-94.0) 11/24/16 07:33 MCH 28.8 pg (27.0-31.0) 11/24/16 07:33 MCHC 32.1 g/dL (33.0-37.0) L 11/24/16 07:33 RDW 13.9 % (11.5-14.5) 11/24/16 07:33 Plt Count 304 K/uL (130-400) 11/24/16 07:33 MPV 7.7 fL (7.2-11.7) 11/24/16 07:33 Neut % (Auto) 51.7 % (50.0-75.0) 11/24/16 07:33 Lymph % (Auto) 30.1 % (20.0-40.0) 11/24/16 07:33 [place] % (Auto) 11.8 % (0.0-10.0) H 11/24/16 07:33 Eos % (Auto) 5.7 % (0.0-4.0) H 11/24/16 07:33 Baso % (Auto) 0.7 % (0.0-2.0) 11/24/16 07:33 Neut # 2.6 K/uL (1.8-7.0) 11/24/16 07:33 Lymph # 1.5 K/uL (1.0-4.3) 11/24/16 07:33 [place] # 0.6 K/uL (0.0-0.8) 11/24/16 07:33 Eos # 0.3 K/uL (0.0-0.7) 11/24/16 07:33 Baso # 0.0 K/uL (0.0-0.2) 11/24/16 07:33 PT 13.8 SECONDS (9.7-12.2) H 11/19/16 11:56 INR 1.2 11/19/16 11:56 APTT 36 SECONDS (21-34) H 11/19/16 11:56 Sodium 140 mmol/L (132-148) 11/24/16 07:33 Potassium 4.1 mmol/L (3.6-5.2) 11/24/16 07:33 Chloride 98 mmol/L (98-107) 11/24/16 07:33 Carbon Dioxide 28 mmol/L (22-30) 11/24/16 07:33 Anion Gap 19 (10-20) 11/24/16 07:33 BUN 5 mg/dL (9-20) L 11/24/16 07:33 Creatinine 1.0 MG/DL (0.8-1.5) 11/24/16 07:33 Est GFR ( Amer) > 60 11/24/16 07:33 Est GFR (Non-Af Amer) > 60 11/24/16 07:33 Random Glucose 134 mg/dL (75-110) H 11/24/16 07:33 Calcium 8.1 mg/dl (8.6-10.4) L 11/24/16 07:33 Phosphorus 3.7 mg/dL (2.5-4.5) 11/24/16 07:33 Magnesium 2.0 mg/dL (1.6-2.3) 11/24/16 07:33 Total Bilirubin 0.4 mg/dL (0.2-1.3) 11/24/16 07:33 AST 32 U/L (17-59) 11/24/16 07:33 ALT 27 U/L (21-72) 11/24/16 07:33 Alkaline Phosphatase 51 U/L (38-126) 11/24/16 07:33 Lactate Dehydrogenase 301 U/L (313-618) L 11/17/16 07:28 Total Creatine Kinase 40 U/L (55-170) L 11/21/16 10:45 CK-MB (Mass) < 0.22 ng/mL (0.0-3.38) 11/21/16 10:45 Troponin I, Quant < 0.0120 ng/mL (0.00-0.120) 11/21/16 10:45 Total Protein 7.2 g/dL (6.3-8.3) 11/24/16 07:33 Albumin 3.4 g/dL (3.5-5.0) L 11/24/16 07:33 Globulin 3.8 gm/dL (2.2-3.9) 11/24/16 07:33 Albumin/Globulin Ratio 0.9 (1.0-2.1) L 11/24/16 07:33 Alpha Fetoprotein 3.0 ng/mL (0.0-7.5) 11/18/16 06:29 Beta HCG, Quant < 2.39 mIU/ML 11/17/16 07:28 Urine Color Yellow (YELLOW) 11/16/16 13:46 Urine Clarity Hazy (Clear) 11/16/16 13:46 Urine pH 5.0 (5.0-8.0) 11/16/16 13:46 Ur Specific [place] 1.025 (1.003-1.030) 11/16/16 13:46 Urine Protein Negative mg/dL (NEGATIVE) 11/16/16 13:46 Urine Glucose (UA) Normal mg/dL (Normal) 11/16/16 13:46 Urine Ketones Trace mg/dL (NEGATIVE) 11/16/16 13:46 Urine Blood Negative (NEGATIVE) 11/16/16 13:46 Urine Nitrate Negative (NEGATIVE) 11/16/16 13:46 Urine Bilirubin Negative (NEGATIVE) 11/16/16 13:46 Urine Urobilinogen Normal mg/dL (0.2-1.0) 11/16/16 13:46 Ur Leukocyte Esterase Neg Blade/uL (Negative) 11/16/16 13:46 Urine WBC (Auto) 1 /hpf (0-5) 11/16/16 13:46 Urine RBC (Auto) 3 /hpf (0-3) 11/16/16 13:46 Ur Squamous Epith Cells < 1 /hpf (0-5) 11/16/16 13:46 Vancomycin Trough 6.6 ug/mL (5.0-10.0) 11/18/16 02:58 Random Vancomycin 6.90 ug/mL 11/21/16 03:40 RPR Nonreactive (NONREACTIVE) 11/16/16 16:37 C.trachomatis RNA (TMA) Not detected (Not Detected) 11/16/16 13:38 Hepatitis A IgM Ab Negative (NEGATIVE) 11/16/16 16:37 Hep Bs Antigen Negative (NEGATIVE) 11/16/16 16:37 Hep Bs Antibody Negative (NEGATIVE) 11/16/16 16:37 Hep B Core IgM Ab Negative (NEGATIVE) 11/16/16 16:37 Hepatitis C Antibody Negative (NEGATIVE) 11/16/16 16:37 HSV II IgG <0.90 index (()) 11/18/16 06:29 HIV 1&2 Antibody Screen Negative (NEGATIVE) 11/16/16 16:37 N.gonorrhoeae RNA (TMA) Not detected (Not Detected) 11/16/16 13:38 - Hospital Course Hospital Course: This is a 41 yo M with no significant PMH that presented to the ED with a chief complaint of left testicular pain. Pt states that his symptoms began 6 months ago and started out what looked like a "pimple" on his left testicle. He states that he is able to express discharge from it at times. He states that it progressed and became more painful. He states that he has a feeling of fullness and it has gotten worse over time as well. The pain is currently a 6/10 and is constant. There is no relieving factors. Pt states that he had a 103.1 fever 3 days ago that resolved with over the counter medications. Pt states that he is sexually active with only his . Denies any more fevers, denies chills, chest pain, sob, nausea, vomiting, penile discharge, dysuria, urinary urgency or frequency. Pt admitted to hospital for evaluation of L scrotal wall cellulitis. Pt see/ evaluated by urology with surgical intervention of incision and drainage performed on hospital day 1. Pt see/evaluated by ID with recommendation for antibiotic coverage, wound culture positive for streptococcus anginousus group. On hospital day 2 pt was taken back to OR for packing changes of 3 scrotal and perineal wounds with irrigation of all wounds and removal of Fitzpatrick catheter. Leukocytosis resolved over course of hospitalization. All labs grossly WNL, multiple labs were negative for infectious etiology including RPR, C. trachomatis, Hepatitis A, B, C panel, HSV, HIV, and N. gonorrhoaea RNA. Pt did well post op, pain well controlled, no problems. Pt stable and ready for discharge home as per Dr. Li and Dr. Vences. Pt to be discharged home on antibiotic as per infectious disease. Pt to follow up with urology in 10 days - pt expressed understanding of follow up instructions, indicated he had been taught how to care for wound by urology team. Diagnoses: Left scrotal abscess s/p Incision and drainage, GERD Please see EMR for full details of hospital course - Date & Time of H&P Date of H&P: 11/16/16 Time of H&P: 16:54 Discharge Exam - Head Exam Head Exam: ATRAUMATIC, NORMAL INSPECTION, NORMOCEPHALIC - Eye Exam Eye Exam: EOMI, Normal appearance, PERRL Pupil Exam: NORMAL ACCOMODATION, PERRL - ENT Exam ENT Exam: Mucous Membranes Moist, Normal Exam - Neck Exam Neck exam: Full Rom, Normal Inspection - Respiratory Exam Respiratory Exam: Clear to PA & Lateral, NORMAL BREATHING PATTERN, UNREMARKABLE. absent: Rales, Rhonchi, Wheezes, Respiratory Distress, Stridor - Cardiovascular Exam Cardiovascular Exam: REGULAR RHYTHM, +S1, +S2 - GI/Abdominal Exam GI & Abdominal Exam: Normal Bowel Sounds, Soft, Unremarkable. absent: Tenderness - Exam Additional comments: palpable mass in Left inguinal area, slightly tender to palpation, scotal support in place with gauze over scrotal I & D site- C/D/I - Extremities Exam Extremities exam: full ROM, normal inspection - Back Exam Back exam: FULL ROM, NORMAL INSPECTION - Neurological Exam Neurological exam: Alert, CN II-XII Intact, Normal Gait, Oriented x3 - Psychiatric Exam Psychiatric exam: Normal Affect, Normal Mood - Skin Skin Exam: Dry, Normal Color, Warm Discharge Plan - Discharge Medications Prescriptions: Amoxicillin/Clavulanate [Augmentin 875 MG-125 MG Tab] 1 tab PO BID #28 tab - Follow Up Plan Condition: STABLE Disposition: HOME/ ROUTINE Instructions: Amoxicillin/Clavulanate Potassium (By mouth), Cellulitis (DC), Abscess (GEN) Additional Instructions: Patient cleared for discharge home as per Dr. Li and Dr. Vences. Patient instructed on wound care/dressing changes by urology team. You are being discharged on an antibiotic - please take as directed and finish the course. Please follow up with your primary care doctor within 1 week after discharge from hospital. Please follow up with Dr. Li in 10 days as previously specified. If you have a recurrence of symptoms or develop fevers, please return to hospital. Referrals: Markus Li MD [Staff Provider] - [facility] [Outside] <Obey Vences - Last Filed: 11/24/16 17:35> Provider - Provider Date of Admission: 11/16/16 16:08 Attending physician: Osman Atkinson MD Hospital Course - Lab Results Lab Results: Micro Results 11/19/16 06:00 Other: Please Indicate Gram Stain - Final 11/19/16 06:00 Other: Please Indicate Wound Culture - Final Coagulase Neg Staphylococcus 11/19/16 06:00 Other: Please Indicate Gram Stain - Final 11/19/16 06:00 Other: Please Indicate Tissue Culture - Final Coagulase Neg Staphylococcus 11/16/16 Unknown Scrotum Gram Stain - Final 11/16/16 Unknown Scrotum Wound Culture - Final Streptococcus anginosus group Most Recent Lab Values WBC 5.1 K/uL (4.8-10.8) 11/24/16 07:33 RBC 3.76 Mil/uL (4.40-5.90) L 11/24/16 07:33 Hgb 10.8 g/dL (12.0-18.0) L 11/24/16 07:33 Hct 33.7 % (35.0-51.0) L 11/24/16 07:33 MCV 89.8 fL (80.0-94.0) 11/24/16 07:33 MCH 28.8 pg (27.0-31.0) 11/24/16 07:33 MCHC 32.1 g/dL (33.0-37.0) L 11/24/16 07:33 RDW 13.9 % (11.5-14.5) 11/24/16 07:33 Plt Count 304 K/uL (130-400) 11/24/16 07:33 MPV 7.7 fL (7.2-11.7) 11/24/16 07:33 Neut % (Auto) 51.7 % (50.0-75.0) 11/24/16 07:33 Lymph % (Auto) 30.1 % (20.0-40.0) 11/24/16 07:33 [place] % (Auto) 11.8 % (0.0-10.0) H 11/24/16 07:33 Eos % (Auto) 5.7 % (0.0-4.0) H 11/24/16 07:33 Baso % (Auto) 0.7 % (0.0-2.0) 11/24/16 07:33 Neut # 2.6 K/uL (1.8-7.0) 11/24/16 07:33 Lymph # 1.5 K/uL (1.0-4.3) 11/24/16 07:33 [place] # 0.6 K/uL (0.0-0.8) 11/24/16 07:33 Eos # 0.3 K/uL (0.0-0.7) 11/24/16 07:33 Baso # 0.0 K/uL (0.0-0.2) 11/24/16 07:33 PT 13.8 SECONDS (9.7-12.2) H 11/19/16 11:56 INR 1.2 11/19/16 11:56 APTT 36 SECONDS (21-34) H 11/19/16 11:56 Sodium 140 mmol/L (132-148) 11/24/16 07:33 Potassium 4.1 mmol/L (3.6-5.2) 11/24/16 07:33 Chloride 98 mmol/L (98-107) 11/24/16 07:33 Carbon Dioxide 28 mmol/L (22-30) 11/24/16 07:33 Anion Gap 19 (10-20) 11/24/16 07:33 BUN 5 mg/dL (9-20) L 11/24/16 07:33 Creatinine 1.0 MG/DL (0.8-1.5) 11/24/16 07:33 Est GFR ( Amer) > 60 11/24/16 07:33 Est GFR (Non-Af Amer) > 60 11/24/16 07:33 Random Glucose 134 mg/dL (75-110) H 11/24/16 07:33 Calcium 8.1 mg/dl (8.6-10.4) L 11/24/16 07:33 Phosphorus 3.7 mg/dL (2.5-4.5) 11/24/16 07:33 Magnesium 2.0 mg/dL (1.6-2.3) 11/24/16 07:33 Total Bilirubin 0.4 mg/dL (0.2-1.3) 11/24/16 07:33 AST 32 U/L (17-59) 11/24/16 07:33 ALT 27 U/L (21-72) 11/24/16 07:33 Alkaline Phosphatase 51 U/L (38-126) 11/24/16 07:33 Lactate Dehydrogenase 301 U/L (313-618) L 11/17/16 07:28 Total Creatine Kinase 40 U/L (55-170) L 11/21/16 10:45 CK-MB (Mass) < 0.22 ng/mL (0.0-3.38) 11/21/16 10:45 Troponin I, Quant < 0.0120 ng/mL (0.00-0.120) 11/21/16 10:45 Total Protein 7.2 g/dL (6.3-8.3) 11/24/16 07:33 Albumin 3.4 g/dL (3.5-5.0) L 11/24/16 07:33 Globulin 3.8 gm/dL (2.2-3.9) 11/24/16 07:33 Albumin/Globulin Ratio 0.9 (1.0-2.1) L 11/24/16 07:33 Alpha Fetoprotein 3.0 ng/mL (0.0-7.5) 11/18/16 06:29 Beta HCG, Quant < 2.39 mIU/ML 11/17/16 07:28 Urine Color Yellow (YELLOW) 11/16/16 13:46 Urine Clarity Hazy (Clear) 11/16/16 13:46 Urine pH 5.0 (5.0-8.0) 11/16/16 13:46 Ur Specific [place] 1.025 (1.003-1.030) 11/16/16 13:46 Urine Protein Negative mg/dL (NEGATIVE) 11/16/16 13:46 Urine Glucose (UA) Normal mg/dL (Normal) 11/16/16 13:46 Urine Ketones Trace mg/dL (NEGATIVE) 11/16/16 13:46 Urine Blood Negative (NEGATIVE) 11/16/16 13:46 Urine Nitrate Negative (NEGATIVE) 11/16/16 13:46 Urine Bilirubin Negative (NEGATIVE) 11/16/16 13:46 Urine Urobilinogen Normal mg/dL (0.2-1.0) 11/16/16 13:46 Ur Leukocyte Esterase Neg Blade/uL (Negative) 11/16/16 13:46 Urine WBC (Auto) 1 /hpf (0-5) 11/16/16 13:46 Urine RBC (Auto) 3 /hpf (0-3) 11/16/16 13:46 Ur Squamous Epith Cells < 1 /hpf (0-5) 11/16/16 13:46 Vancomycin Trough 6.6 ug/mL (5.0-10.0) 11/18/16 02:58 Random Vancomycin 6.90 ug/mL 11/21/16 03:40 RPR Nonreactive (NONREACTIVE) 11/16/16 16:37 C.trachomatis RNA (TMA) Not detected (Not Detected) 11/16/16 13:38 Hepatitis A IgM Ab Negative (NEGATIVE) 11/16/16 16:37 Hep Bs Antigen Negative (NEGATIVE) 11/16/16 16:37 Hep Bs Antibody Negative (NEGATIVE) 11/16/16 16:37 Hep B Core IgM Ab Negative (NEGATIVE) 11/16/16 16:37 Hepatitis C Antibody Negative (NEGATIVE) 11/16/16 16:37 HSV II IgG <0.90 index (()) 11/18/16 06:29 HIV 1&2 Antibody Screen Negative (NEGATIVE) 11/16/16 16:37 N.gonorrhoeae RNA (TMA) Not detected (Not Detected) 11/16/16 13:38 Attending/Attestation - Attestation I have personally seen and examined this patient.: Yes I have fully participated in the care of the patient.: Yes I have reviewed all pertinent clinical information, including history, physical exam and plan: Yes Notes (Text): 11/24/16 17:34 Patient was seen and examined at bedside with the resident today. Patient is status post IND of the scrotal abscess and currently the wound is packed. Wound examined and it is clean and dry. Patient is cleared for discharge by surgery. Patient will be discharged on oral antibiotic. Augmentin is recommended by ID. We will discharge the patient on Augmentin and follow-up with the urology within 1 week. Discharge plan discussed with the patient and he verbalized understanding.
--- NOTE | 2016-12-05 14:38 | CARD ---
APPROVED REPORT EKG Measurement Heart [id number] <Conclusion> Normal sinus rhythm Possible Left atrial enlargement Borderline ECG
== END 2016-11-24 13:20 | disposition home or self-care (01) | DRG 468 ==
LOC: C.ER 10:58 → C.9E 16:08 → C.3T 17:30
PROVIDERS: ADMIT Internal Medicine; ATTEND Internal Medicine
PROC: 0W9M0ZX Drainage of Male Perineum, Open Approach, Diagnostic (ICD-10-PCS; 2016-11-19)
PROC: 0TPB70Z Removal of Drainage Device from Bladder, Via Natural or Artificial Opening (ICD-10-PCS; 2016-11-21)
PROC: 2W0 Placement, Anatomical Regions, Change (ICD-10-PCS; 2016-11-21)
PROC: 3E10X8Z Irrigation of Skin and Mucous Membranes using Irrigating Substance (ICD-10-PCS; principal; 2016-11-21 11:00)
DX: N49.2 Inflammatory disorders of scrotum (principal); L03.116 Cellulitis of left lower limb; L02.215 Cutaneous abscess of perineum; D72.829 Elevated white blood cell count, unspecified; Z87.891 Personal history of nicotine dependence; N28.9 Disorder of kidney and ureter, unspecified; R59.0 Localized enlarged lymph nodes; R50.82 Postprocedural fever; K21.9 Gastro-esophageal reflux disease without esophagitis; R07.9 Chest pain, unspecified; K59.00 Constipation, unspecified

== ENCOUNTER 2017-01-07 14:10 | Emergency (ER) | payer OTHER ==
[2017-01-07 14:41] VITALS: RESP 20; TEMP 98.8
--- NOTE | 2017-01-07 14:50 | C.PDOC ---
History Of Present Illness 41-year-old male, presents to the ED w/ complaints of pain and swelling to right scrotum for the past few days. Patient started applying warm compresses, and overnight it opened and began draining purulently. Patient was admitted one month ago for left sided abscesses. Pt went to OR x2. he was discharged w/ ABX, states he finished course, and feels better but still has slight draining from left side. No fever or chills. Time Seen by Provider: 01/07/17 14:45 Chief Complaint (Nursing): Abnormal Skin Integrity History Per: Patient History/Exam Limitations: no limitations Onset/Duration Of Symptoms: Days Current Symptoms Are (Timing): Still Present Past Medical History Reviewed: Historical Data, Nursing Documentation, Vital Signs Vital Signs: Last Vital Signs Temp 98.8 F 01/07/17 14:37 Pulse 100 H 01/07/17 15:12 Resp 20 01/07/17 15:12 BP 118/68 01/07/17 15:12 Pulse Ox 100 01/07/17 16:58 - [facility] Procedures CHANGE PACKING MATERIAL ON LEFT INGUINAL REGION (11/16/16) DRAINAGE OF MALE PERINEUM, OPEN APPROACH, DIAGNOSTIC (11/16/16) IRRIGATION OF SKIN AND MUCOUS MEMBRANES USING IRRIGAT (11/16/16) REMOVAL OF DRAINAGE DEVICE FROM BLADDER, VIA OPENING (11/16/16) Family History: States: No Known Family Hx - Social History Hx Alcohol Use: No Hx Substance Use: No - Immunization History Hx Tetanus Toxoid Vaccination: Yes Review Of Systems Except As Marked, All Systems Reviewed And Found Negative. Cardiovascular: Negative for: Chest Pain Gastrointestinal: Negative for: Vomiting Genitourinary: Positive for: Scrotal Pain Neurological: Negative for: Weakness, Numbness Physical Exam - Physical Exam Appears: Non-toxic, No Acute Distress Skin: Warm, Dry, No Rash Neck: Normal ROM Male Genital: Other (Scrotum: Superior posterior aspect on left w/ irregular surgical wound. No redness or tenderness. Slight serous draining. Right: 1x4cm area of incubation with) Extremity: Normal ROM ED Course And Treatment O2 Sat by Pulse Oximetry: 100 Medical Decision Making Medical Decision Making: New area already draining, no fever or comorbidity, OP trial of po meds indicated Pt understands that this may not work, and may need IV abx, Pt advised to see his urologist in 2 day but to return for fever chills or any other new symptoms Disposition - Disposition Referrals: Markus Li MD [Staff Provider] - Disposition: HOME/ ROUTINE Disposition Time: 15:04 Condition: GOOD Additional Instructions: return to the ED for any new or worsening symptoms Prescriptions: Amoxicillin/Clavulanate [Augmentin 875 MG-125 MG] 1 tab PO BID #14 tab Ibuprofen [Motrin] 1 tab PO QID PRN #30 tab PRN Reason: .Pain or Fever Instructions: Abscess (ED) Forms: Work Excuse - Clinical Impression Clinical Impression: Scrotal abscess - Scribe Statement The provider has reviewed the documentation as recorded by the Bonny Stiles All medical record entries made by the Bonny were at my direction and personally dictated by me. I have reviewed the chart and agree that the record accurately reflects my personal performance of the history, physical exam, medical decision making, and the department course for this patient. I have also personally directed, reviewed, and agree with the discharge instructions and disposition.
[2017-01-07 15:28] VITALS: BP 118/68; PULSE 100
[2017-01-07 16:55] VITALS: O2SAT 100
== END 2017-01-07 15:13 | disposition home or self-care (01) ==
LOC: C.ER 14:10
DX: N49.2 Inflammatory disorders of scrotum (principal)

== ENCOUNTER 2017-08-10 19:15 | Emergency (ER) | payer SELFPAY ==
--- NOTE | 2017-08-10 21:45 | C.PDOC ---
History Of Present Illness Patient presents to ED with complaints of numerous abscesses intermittently for the past few months around the scrotal, perineal, and sacral region, associated with intermittent fever. Patient has had numerous I&Ds in the past. Denies pain or other complaints. Time Seen by Provider: 08/10/17 21:45 Chief Complaint (Nursing): Abnormal Skin Integrity History Per: Patient History/Exam Limitations: no limitations Onset/Duration Of Symptoms: Days (Few months) Current Symptoms Are (Timing): Still Present Location Of Injury: Anterior: Perineum, Posterior: Back, Perineum Quality Of Symptoms: Other (Abscesses ). denies: Painful Severity: Moderate Pain Scale Rating Of: 5 Recent travel outside of the [place]: No Past Medical History Reviewed: Historical Data, Nursing Documentation, Vital Signs Vital Signs: Last Vital Signs Temp 99.0 F 08/10/17 22:38 Pulse 87 08/11/17 00:01 Resp 18 08/11/17 00:01 BP 100/56 L 08/11/17 00:01 Pulse Ox 100 08/11/17 00:01 - Medical History PMH: No Chronic Diseases - [facility] Procedures CHANGE PACKING MATERIAL ON LEFT INGUINAL REGION (11/16/16) DRAINAGE OF MALE PERINEUM, OPEN APPROACH, DIAGNOSTIC (11/16/16) IRRIGATION OF SKIN AND MUCOUS MEMBRANES USING IRRIGAT (11/16/16) REMOVAL OF DRAINAGE DEVICE FROM BLADDER, VIA OPENING (11/16/16) Family History: States: No Known Family Hx - Social History Hx Alcohol Use: No Hx Substance Use: No - Immunization History Hx Tetanus Toxoid Vaccination: Yes Hx Influenza Vaccination: No Hx Pneumococcal Vaccination: No Review Of Systems Constitutional: Positive for: Fever (intermittent ). Negative for: Chills Gastrointestinal: Negative for: Abdominal Pain Skin: Positive for: Other (Numerous abscesses) Physical Exam - Physical Exam Appears: Non-toxic, Other (Awake and alert) Skin: Warm, Dry Head: Normacephalic Eye(s): bilateral: Normal Inspection Gastrointestinal/Abdominal: Soft, No Tenderness Back: Other (2x3 draining abscess to sacral region) Male Genital: No Testicular Tenderness, Other (Draining abscess on left side of scrotum, smaller abscess on scrotum) Neurological/Psych: Oriented x3 ED Course And Treatment - Laboratory Results Result Diagrams: 08/10/17 21:58 08/10/17 22:26 O2 Sat by Pulse Oximetry: 98 (Room air ) Pulse Ox Interpretation: Normal Progress Note: Administered Ancef and IV fluids. Ordered blood work and urinalysis. Reevaluation Time: 00:07 Reassessment Condition: Improved Disposition Counseled Patient/Family Regarding: Studies Performed, Diagnosis, Need For Followup, Rx Given - Disposition Referrals: [facility] [Outside] [facility] [Outside] Disposition: HOME/ ROUTINE Disposition Time: 21:45 Condition: FAIR Prescriptions: Cephalexin [Keflex] 500 mg PO QID #28 capsule Sulfamethoxazole/Trimethoprim [Bactrim DS 800 mg-160 mg] 1 tab PO BID #14 tab traMADol [Ultram] 50 mg PO TID PRN #15 tab PRN Reason: Pain, Moderate (4-7) Instructions: Abscess (GEN) Forms: [facility] ([place]), Work Excuse - Clinical Impression Clinical Impression: Scrotal abscess - Scribe Statement The provider has reviewed the documentation as recorded by the Nataliyaibderek Sanchez All medical record entries made by the Nataliyaibderek were at my direction and personally dictated by me. I have reviewed the chart and agree that the record accurately reflects my personal performance of the history, physical exam, medical decision making, and the department course for this patient. I have also personally directed, reviewed, and agree with the discharge instructions and disposition.
[2017-08-10 21:50] VITALS: RESP 18
[2017-08-10] MEDS ORDERED: ceFAZolin IV 2 gm in Dextrose 2 GM/50 ML BAG IVPB ONE (22:00)
[2017-08-10 22:02] LABS: BASO # 0.1 K/uL (0.0-0.2); BASO % 0.5 % (0.0-2.0); EOS # 0.2 K/uL (0.0-0.7); EOS % 1.2 % (0.0-4.0); LYMPH # 1.6 K/uL (1.0-4.3); LYMPH % 9.4 % (20.0-40.0); MEAN CORPUSCULAR HEMOGLOBIN 27.6 pg (27.0-31.0); MEAN CORPUSCULAR HGB CONC 32.6 g/dL (33.0-37.0); MEAN PLATELET VOLUME 7.7 fL (7.2-11.7); MONO # 0.9 K/uL (0.0-0.8); MONO % 5.5 % (0.0-10.0); PLATELET COUNT 499 K/uL (130-400); RED CELL DISTRIBUTION WIDTH 14.6 % (11.5-14.5); WHITE BLOOD COUNT 17.2 K/uL (4.8-10.8)
[2017-08-10 22:03] LABS: MEAN CELL VOLUME 84.5 fL (80.0-94.0)
[2017-08-10 22:18] LABS: RBC URINE 2 /hpf (0-3); URINE BACTERIA OCC (<OCC); URINE BILIRUBIN NEGATIVE (NEGATIVE); URINE BLOOD NEGATIVE (NEGATIVE); URINE COLOR Yellow (YELLOW); URINE GLUCOSE (UA) NORMAL (Normal); URINE KETONE TRACE mg/dL (NEGATIVE); URINE LEUKOCYTE ESTERASE NEG Leu/uL (Negative); URINE PROTEIN NEGATIVE (NEGATIVE); WBC URINE 2 /hpf (0-5)
[2017-08-10 22:39] VITALS: TEMP 99
[2017-08-10 22:43] LABS: BLOOD UREA NITROGEN 13 mg/dL (9-20); CALCIUM 7.7 mg/dl (8.6-10.4); CARBON DIOXIDE 29 mmol/L (22-30); CHLORIDE 96 mmol/L (98-107); GFR AFRICAN-AMERICAN > 60; GLUCOSE,RANDOM 96 mg/dL (75-110); POTASSIUM 5.4 mmol/L (3.6-5.2); SODIUM 130 mmol/L (132-148)
[2017-08-10 23:02] LABS: EOSINOPHIL 1 % (0-4); NEUTROPHIL 83 % (50-75); TOTAL CELLS COUNTED 100
[2017-08-11 00:02] VITALS: BP 100/56; PULSE 87
[2017-08-11 00:10] VITALS: O2SAT 98
== END 2017-08-11 00:30 | disposition home or self-care (01) ==
LOC: C.ER 19:15
DX: N49.2 Inflammatory disorders of scrotum (principal)
CPT/HCPCS: 80048; 81001; 85025; 96365; 96375; 99285; J0690; J1885